=== PATIENT | male | born 1965 | race Caucasian/White ===

== ENCOUNTER 2016-11-20 11:15 | Emergency (ER) | payer OTHER ==
[~2016-11-20] VITALS: Ht 157.5 cm; Wt 97.4 kg
[~2016-11-20 11:15] MED LIST: ASPEC81 PO; CHOL100010 PO; INSDGI SC; LISI-729 PO; METF850T PO; METO25TA3 PO; NTRGSL/4 UT; OXYC-57 PO
[2016-11-20 11:17] VITALS: TEMP 37; Ht 157.5 cm; Wt 97.4 kg
[2016-11-20] MEDS ORDERED: CHOL1TAB42 PO (11:47)
[2016-11-20] MEDS ORDERED: ROSU40TA PO (11:47)
[2016-11-20] MEDS ORDERED: MELO15TA4 PO (11:47)
[2016-11-20] MEDS ORDERED: INSDGIPEN SC (11:47)
[2016-11-20] MEDS ORDERED: ASPI81TA28 PO (11:47)
[2016-11-20] MEDS ORDERED: LISI-461 PO (11:47)
[2016-11-20] MEDS ORDERED: DiphenhydrAMINE HCL 50 MG/ML VIAL IV STA (12:12)
[2016-11-20] MEDS ORDERED: KETOROLAC TROMETHAMINE 30 MG/ML VIAL IV STA (12:12)
[2016-11-20] MEDS ORDERED: PROCHLORPERAZINE 5 MG/ML 2 ML VIAL IV STA (12:12)
[2016-11-20] MEDS ORDERED: SODIUM CHLORIDE 0.9% 1000ML 1,000 ML IV STA ×2 (12:12→14:22)
[2016-11-20] MEDS ORDERED: DEXAMETHASONE SOD INJ 10 MG/ML VIAL IV ONE (12:15)
--- NOTE | 2016-11-20 12:17 | EMERGENCY ROOM VISIT NOTE ---
History Report prepared by Mickey: Matheus Holm Under the Supervision of: Dr. Drake Albert M.D. First contact with patient: 12:02 Chief Complaint: REFERRED BY DOCTOR Stated Complaint: SENT BY 'S OFFICE POSSIBLE BRAIN BLEED History of Present Illness The patient is a 51 year old male who presents to the Emergency Room with complaints of a constant left-sided headache for the past six days. The patient finds some relief with Tylenol. The patient also notes seeing spots, and feeling nauseous and lightheaded. The patient experiences chronic headaches, but notes that the current headache is unusual. His PCP referred him to the ED to role out a brain bleed. The patient denies neck pain. The patient is not a smoker. Source of History: patient Onset: six days Position: head (left) Timing: constant Modifying Factors (Relieving): tylenol Associated Symptoms: + nausea, No neck pain Review of Systems See HPI for pertinent positives & negatives. A total of 10 systems reviewed and were otherwise negative. Past Medical & Surgical Medical Problems: (1) Coron Atheroscler Nos Type Vessel, Lime Or Graft (2) Diab Allie Wo Compl, Type Ii Or Unspec Type, Not Uncntrld (3) History Of Tobacco Use (4) Hyperlipidemia Nec/Nos (5) Hypertension Nos (6) Migraine Unspecified W/O Intractable Migraine Family History Diabetes mellitus Heart disease Hypertension Social History Smoking Status: Never Smoker Alcohol Use: occasionally Marital Status: Housing Status: lives with family Occupation Status: employed Current/Historical Medications Scheduled Amoxicillin & Pot Clavulanate (Augmentin 875-125 mg), 1 TAB PO BID Aspirin (Aspirin Ec), 81 MG PO DAILY Cholecalciferol (Vitamin D), 5,000 UNITS PO DAILY Insulin Glargine (Lantus Solostar), 26 UNITS SC QPM Lisinopril (Zestril), 10 MG PO DAILY Meloxicam (Mobic), 15 MG PO DAILY Metformin Hcl (Glucophage), 850 MG PO BIDM Metoprolol Succ (Toprol Xl) (Toprol-Xl), 0.5 TAB PO BID Nitroglycerin (Nitrostat), 0.4 MG UT PRN Rosuvastatin Calcium (Crestor), 1 TAB PO DAILY Allergies Coded Allergies: No Known Allergies (Verified , 07/03/15) Physical Exam Vital Signs Date Time Temp Pulse Resp B/P Pulse Ox O2 Delivery O2 Flow Rate FiO2 11/20/16 15:54 74 22 158/99 94 Room Air 11/20/16 14:06 63 12 169/97 98 Room Air 11/20/16 12:41 69 11/20/16 12:35 67 17 142/94 97 Room Air 11/20/16 11:17 37.0 66 17 160/107 96 Room Air Physical Exam GENERAL: Patient is a healthy-appearing well-nourished HEAD: Normocephalic atraumatic EYES: Ocular movements intact pupils equal and react to light OROPHARYNX mucous membranes are moist no exudates present no erythema or edema present NECK: Supple no nuchal rigidity. No evidence of meningitis or encephalitis on exam. CHEST: Good equal expansion LUNGS: Clear and equal to auscultation CARDIAC: Normal S1 and S2 ABDOMEN: Soft nontender no guarding BACK: No CVA tenderness EXTREMITIES: No pain upon palpation normal muscle strength in all groups no clubbing cyanosis or edema NEURO: Patient is following commands is answering questions appropriately. Alert and oriented x3 Cranial Nerves 2-12 grossly intact Medical Decision & Procedures ER Provider Diagnostic Interpretation: CT results as stated below per my review and radiologist interpretation: HEAD CT NONCONTRAST CT DOSE: 537.48 mGy.cm HISTORY: Pt c/o left sided headache TECHNIQUE: Multiaxial CT images of the head were performed without the use of intravenous contrast. Automated exposure control was utilized for this study. Comparison: Head CT 07/13/2007. Findings: The paranasal sinuses and mastoid air cells are clear. The calvarium and skull base are intact. The ventricles and sulci are within normal limits. There is no mass, hematoma, midline shift, or acute infarct. Impression: No acute intracranial abnormality. Electronically signed by: Vincenzo Masterson M.D. 11/20/2016 2:14 PM Dictated Date/Time: 11/20/2016 2:04 PM CTA ANGIOGRAPHY OF THE HEAD CLINICAL HISTORY: Severe headache. COMPARISON STUDY: MRI the brain January 26, [address] performed earlier today. TECHNIQUE: Helical axial images of the head were obtained following uneventful intravenous administration of 93 cc of Optiray 320. CT DOSE: 209.35 mGy.cm FINDINGS: No acute intracranial hemorrhage, midline shift or mass effect is present. Ventricular system is normal. The basilar cisterns are patent. There are no extra-axial collections. Patino-white differentiation is maintained. The bilateral M1, M2, A1 and A2 segments are patent. The right A1 segment is diminutive. There is mild intracranial vascular irregularity. No aneurysm is identified within the intracranial circulation. The posterior circulation is intact. The major dural sinuses appear patent. There are are small amount of secretions within the left sphenoid sinus. There is mild polypoid mucosal thickening of the maxillary sinuses. Orbits are unremarkable. IMPRESSION: 1. No intracranial aneurysm identified. 2. No abrupt vessel cut off. 3. Mild sinus mucosal thickening and scattered secretions. Electronically signed by: Arnie Lorenz M.D. 11/20/2016 3:39 PM Dictated Date/Time: 11/20/2016 3:30 PM Laboratory Results 11/20/16 12:25 Red Blood Count 5.53, Mean Corpuscular Volume 80.8, Mean Corpuscular Hemoglobin 27.8, Mean Corpuscular Hemoglobin Concent 34.5, Mean Platelet Volume 9.7, Neutrophils (%) (Auto) 54.4, Lymphocytes (%) (Auto) 33.1, Monocytes (%) (Auto) 9.1, Eosinophils (%) (Auto) 2.8, Basophils (%) (Auto) 0.3, Neutrophils # (Auto) 4.25, Lymphocytes # (Auto) 2.58, Monocytes # (Auto) 0.71, Eosinophils # (Auto) 0.22, Basophils # (Auto) 0.02 11/20/16 12:25 Test 11/20/16 12:25 11/20/16 12:30 White Blood Count 7.80 K/uL (4.8-10.8) Red Blood Count 5.53 M/uL (4.7-6.1) Hemoglobin 15.4 g/dL (14.0-18.0) Hematocrit 44.7 % (42-52) Mean Corpuscular Volume 80.8 fL (80-100) Mean Corpuscular Hemoglobin 27.8 pg (25-34) Mean Corpuscular Hemoglobin Concent 34.5 g/dl (32-36) Platelet Count 260 K/uL (130-400) Mean Platelet Volume 9.7 fL (7.4-10.4) Neutrophils (%) (Auto) 54.4 % Lymphocytes (%) (Auto) 33.1 % Monocytes (%) (Auto) 9.1 % Eosinophils (%) (Auto) 2.8 % Basophils (%) (Auto) 0.3 % Neutrophils # (Auto) 4.25 K/uL (1.4-6.5) Lymphocytes # (Auto) 2.58 K/uL (1.2-3.4) Monocytes # (Auto) 0.71 K/uL (0.11-0.59) Eosinophils # (Auto) 0.22 K/uL (0-0.5) Basophils # (Auto) 0.02 K/uL (0-0.2) RDW Standard Deviation 41.8 fL (36.4-46.3) RDW Coefficient of Variation 14.1 % (11.5-14.5) Immature Granulocyte % (Auto) 0.3 % Immature Granulocyte # (Auto) 0.02 K/uL (0.00-0.02) Anion Gap 9.0 mmol/L (3-11) Est Creatinine Clear Calc Drug Dose 106.8 ml/min Estimated GFR () 118.1 Estimated GFR (Non- 101.9 BUN/Creatinine Ratio 15.9 (10-20) Calcium Level 9.8 mg/dl (8.5-10.1) Total Bilirubin 0.7 mg/dl (0.2-1) Direct Bilirubin 0.2 mg/dl (0-0.2) Aspartate Amino Transf (AST/SGOT) 31 U/L (15-37) Alanine Aminotransferase (ALT/SGPT) 62 U/L (12-78) Alkaline Phosphatase 64 U/L (45-117) Total Protein 8.2 gm/dl (6.4-8.2) Albumin 4.4 gm/dl (3.4-5.0) Lipase 188 U/L (73-393) Urine Color YELLOW Urine Appearance CLEAR (CLEAR) Urine pH 5.5 (4.5-7.5) Urine Specific [place] 1.011 (1.000-1.030) Urine Protein TRACE (NEG) Urine Glucose (UA) NEG (NEG) Urine Ketones NEG (NEG) Urine Occult Blood 3+ (NEG) Urine Nitrite NEG (NEG) Urine Bilirubin NEG (NEG) Urine Urobilinogen NEG (NEG) Urine Leukocyte Esterase NEG (NEG) Urine WBC (Auto) 0 /hpf (0-5) Urine RBC (Auto) 10-30 /hpf (0-4) Urine Hyaline Casts (Auto) 0 /lpf (0-5) Urine Epithelial Cells (Auto) 5-10 /lpf (0-5) Urine Bacteria (Auto) NEG (NEG) Labs reviewed by ED physician. Medications Administered Medications (Trade) Dose Ordered Sig/Vikki Route Start Time Stop Time Status Last Admin Dose Admin Sodium Chloride (Nss 1000ml) 1,000 ml @ 999 mls/hr Q1H1M STAT IV 11/20/16 12:12 11/20/16 13:12 DC 11/20/16 12:51 999 MLS/HR Ketorolac Tromethamine (Toradol Inj) 30 mg NOW STAT IV 11/20/16 12:12 11/20/16 12:16 DC 11/20/16 14:13 30 MG Prochlorperazine Edisylate (Compazine Inj) 10 mg NOW STAT IV 11/20/16 12:12 11/20/16 12:16 DC 11/20/16 12:52 10 MG Diphenhydramine HCl (Benadryl Inj) 50 mg NOW STAT IV 11/20/16 12:12 11/20/16 12:16 DC 11/20/16 12:57 50 MG Dexamethasone Sodium Phosphate (Decadron Inj) 10 mg NOW ONCE IV 11/20/16 12:15 11/20/16 12:16 DC 11/20/16 12:51 10 MG Hydromorphone HCl 1 mg 1 mg NOW STAT IV 11/20/16 14:22 11/20/16 14:23 DC 11/20/16 14:40 1 MG Promethazine HCl 25 mg/Sodium Chloride 51 ml @ 204 mls/hr NOW STAT IV 11/20/16 14:22 11/20/16 14:36 DC 11/20/16 14:40 204 MLS/HR Sodium Chloride (Nss 1000ml) 1,000 ml @ 999 mls/hr Q1H1M STAT IV 11/20/16 14:22 11/20/16 15:22 DC 11/20/16 14:40 999 MLS/HR Sodium Chloride ([place] Nasal [place]) 2 sprays NOW ONCE NA 11/20/16 15:45 11/20/16 15:46 DC 11/20/16 16:02 2 SPRAYS Amoxicillin/ Clavulanate Potassium (Augmentin Tab) 875 mg NOW STAT PO 11/20/16 15:44 11/20/16 15:46 DC 11/20/16 16:02 875 MG ED Course 1208: Past medical records reviewed. The patient was evaluated in room C3. A complete history and physical examination was performed. 1212: Benadryl 50 mg IV, Compazine 10 mg IV, Toradol 30 mg IV, NSS 1000 ml @ 999 mls/hr. 1215: Decadron 10 mg IV. 1422: NSS 1000 ml @ 999 mls/hr, Promethazine HCl 25 mg / NSS 51 ml @ 204 mls/hr , Dilaudid 1 mg IV. Medical Decision Differential diagnosis: Etiologies such as migraine headache, meningitis, sinusitis, CO exposure, ICH, SAH, infection, tumor, headache, sinus thrombosis, arterial dissection, as well as others were entertained. This is a 51-year-old male who presents emergency department with severe headache and is been ongoing for the past 6 days. The patient has no evidence of meningitis encephalitis on examination. CT of the head is normal however the patient continued to have head pain. Based on the fact that the patient stated that the pain came on suddenly we attempted to do a lumbar puncture however were unsuccessful. Based on this the patient was sent back for CAT scan and she however this did not show any acute process. An IV was established , patient given normal saline bolus, Compazine, Benadryl. Repeat examination revealed much improvement patient's symptoms. The patient does have sinus disease on the CAT scan and I will treat him for sinus infection at this point with follow-up with neurology. Patient was in agreement with the treatment plan. Impression Primary Impression: Headache Scribe Attestation The scribe's documentation has been prepared under my direction and personally reviewed by me in its entirety. I confirm that the note above accurately reflects all work, treatment, procedures, and medical decision making performed by me. Departure Information Dispostion Home / Self-Care Prescriptions Amoxicillin & Pot Clavulanate (Augmentin 875-125 mg) 1 Tab Tab 1 TAB PO BID for 10 Days, #20 TAB Prov: Drake Albert MD 11/20/16 Referrals Mark Jauregui M.D. (PCP) Patient Instructions My [facility] Problem Qualifiers Primary Impression: Headache Headache type: tension-type Headache chronicity pattern: unspecified pattern Intractability: not intractable Qualified Codes: G44.209 - Tension- type headache, unspecified, not intractable
[2016-11-20 12:42] LABS: BASO % 0.3 %; BASO ABS # 0.02 K/uL (0-0.2); COMPLETE YES; EOS % 2.8 %; HEMATOCRIT 44.7 % (42-52); IG% 0.3 %; LYMPH % 33.1 %; LYMPH ABS # 2.58 K/uL (1.2-3.4); MEAN CELL VOLUME 80.8 fL (80-100); MEAN CORPUSCULAR HEMOGLOBIN 27.8 pg (25-34); MEAN CORPUSCULAR HGB CONC 34.5 g/dl (32-36); MEAN PLATELET VOLUME 9.7 fL (7.4-10.4); MONO % 9.1 %; NEUT % 54.4 %; PLATELET COUNT 260 K/uL (130-400); RED BLOOD COUNT 5.53 M/uL (4.7-6.1)
[2016-11-20 13:04] LABS: BUN/CREATININE RATIO 15.9 (10-20); CALCIUM 9.8 mg/dl (8.5-10.1); CREATININE 0.83 mg/dl (0.60-1.40)
[2016-11-20 13:05] LABS: URINE APPEARANCE CLEAR (CLEAR); URINE BILIRUBIN NEG (NEG); URINE COLOR YELLOW; URINE NITRITE NEG (NEG); URINE PH 5.5 (4.5-7.5); URINE SPECIFIC GRAVITY 1.011 (1.000-1.030); UROBILINOGEN NEG (NEG)
[2016-11-20 13:10] LABS: MANUAL MICROSCOPIC REQUIRED? NO; REVIEW REQ? NO
--- NOTE | 2016-11-20 14:16 | DIAGNOSTIC IMAGING REPORT ---
HEAD CT NONCONTRAST CT DOSE: 537.48 mGy.cm HISTORY: Pt c/o left sided headache TECHNIQUE: Multiaxial CT images of the head were performed without the use of intravenous contrast. Automated exposure control was utilized for this study. Comparison: Head CT 07/13/2007. Findings: The paranasal sinuses and mastoid air cells are clear. The calvarium and skull base are intact. The ventricles and sulci are within normal limits. There is no mass, hematoma, midline shift, or acute infarct. Impression: No acute intracranial abnormality. Electronically signed by: Vincenzo Masterson M.D. 11/20/2016 2:14 PM Dictated Date/Time: 11/20/2016 2:04 PM
[2016-11-20] MEDS ORDERED: HYDROmorphone INJ 1 MG/ML SYR IV STA (14:22)
[2016-11-20] MEDS ORDERED: PROMETHAZINE HCL INJ 25 MG in SODIUM CHLORIDE 0.9% 50ML 50 ML IV STA (14:22)
[2016-11-20] MEDS ORDERED: LIDOCAINE HCL 1% 20 ML VIAL ONE (14:56)
[2016-11-20] MEDS ORDERED: OPTIRAY 320 IV PRN (15:15)
--- NOTE | 2016-11-20 15:40 | DIAGNOSTIC IMAGING REPORT ---
CTA ANGIOGRAPHY OF THE HEAD CLINICAL HISTORY: Severe headache. COMPARISON STUDY: MRI the brain January 26, [address] performed earlier today. TECHNIQUE: Helical axial images of the head were obtained following uneventful intravenous administration of 93 cc of Optiray 320. CT DOSE: 209.35 mGy.cm FINDINGS: No acute intracranial hemorrhage, midline shift or mass effect is present. Ventricular system is normal. The basilar cisterns are patent. There are no extra-axial collections. Patino-white differentiation is maintained. The bilateral M1, M2, A1 and A2 segments are patent. The right A1 segment is diminutive. There is mild intracranial vascular irregularity. No aneurysm is identified within the intracranial circulation. The posterior circulation is intact. The major dural sinuses appear patent. There are are small amount of secretions within the left sphenoid sinus. There is mild polypoid mucosal thickening of the maxillary sinuses. Orbits are unremarkable. IMPRESSION: 1. No intracranial aneurysm identified. 2. No abrupt vessel cut off. 3. Mild sinus mucosal thickening and scattered secretions. Electronically signed by: Arnie Lorenz M.D. 11/20/2016 3:39 PM Dictated Date/Time: 11/20/2016 3:30 PM
[2016-11-20] MEDS ORDERED: AMOXICILLIN/CLAVULANATE TAB 875 MG TAB PO STA (15:44)
[2016-11-20] MEDS ORDERED: SODIUM CHLORIDE 0.65% NA SOLN 45 ML (OCEAN) ONE (15:45)
[2016-11-20] MEDS ORDERED: AMOX875T PO (15:52)
[2016-11-20 15:54] VITALS: BP 158/99; PULSE 74; O2SAT 94
== END 2016-11-20 16:12 | disposition home or self-care (01) ==
LOC: C.EDB 11:17 → C.EDC 16:12
DX: G44.209 Tension-type headache, unspecified, not intractable (principal); J32.9 Chronic sinusitis, unspecified; I25.10 Atherosclerotic heart disease of native coronary artery without angina pectoris; E11.9 Type 2 diabetes mellitus without complications; I11.9 Hypertensive heart disease without heart failure; G43.909 Migraine, unspecified, not intractable, without status migrainosus; E78.5 Hyperlipidemia, unspecified; Z79.899 Other long term (current) drug therapy; Z79.82 Long term (current) use of aspirin; Z79.4 Long term (current) use of insulin; Z83.3 Family history of diabetes mellitus; Z82.49 Family history of ischemic heart disease and other diseases of the circulatory system

== ENCOUNTER → 2016-12-22 | Outpatient (CLI) | payer OTHER ==
[~2016-12-22] MED LIST changes: -ASPEC81 PO; +ASPI81TA28 PO; -CHOL100010 PO; +CHOL1TAB42 PO; -INSDGI SC; +INSDGIPEN SC; +LISI-461 PO; -LISI-729 PO; +MELO15TA4 PO; -OXYC-57 PO; +ROSU40TA PO
--- NOTE | 2016-12-22 11:14 | DIAGNOSTIC IMAGING REPORT ---
CERVICAL SPINE 2 OR 3 VIEWS CLINICAL HISTORY: G43.909 Headache, [id number] COMPARISON STUDY: 01/21/2012 FINDINGS: There is straightening of normal cervical lordosis. No fractures or subluxations are visualized. There are mild degenerative changes most pronounced the C4-5 and C5-6 levels. IMPRESSION: Mild degenerative changes. No fractures subluxations or destructive lesions are visualized. Electronically signed by: Jean Hill M.D. 12/22/2016 11:12 AM Dictated Date/Time: 12/22/2016 11:12 AM
== END | disposition home or self-care (01) ==
LOC: C.RAD 10:26
PROVIDERS: ATTEND Internal Medicine
DX: G43.909 Migraine, unspecified, not intractable, without status migrainosus (principal)

== ENCOUNTER → 2017-05-05 | Outpatient (CLI) | payer OTHER ==
--- NOTE | 2017-05-06 07:42 | PAP/PSG TECHNICIAN REPORT ---
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 Name: INDERJIT BALDERAS Interpreting Physician: Anil Avilez D.O. 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 Sex: Male Age: 51 StudyType: PSG Weight: 220 lbs Height: 51 years, Height 5' 2" BMI: 40.23 Medications: Atrovastatin Calcium 80 mg, Insulin 100 Units, Lisinopril 10 mg, Metoprolol 50 mg. Patient History 51 yr. old male in room 5, presents from the [place] for a routine sleep study. Pt. States that he wakes with headaches often, and has been told that he has breathing pauses while sleeping. He states that he has had sleep studies in the past that were negative. He also states that he has been told that he snores. Parameters Monitored NPSG: E1-M2, E2-M1, Fp1-M2, Fp2-M1, F3-M2, F4-M2, F4-M1, C3-M2, C4-M2, C4-M1, O1-M2, O2-M2, O2-M1, T3-M2, T4-M1, P3-M2, P4-M1, CHIN1, CHIN2, HR, EKG, Legs, PFLOW, SNOR, FLOW, CFLOW, Tidal Volume, THOR, ABDO, SpO2, PLTH, CPRESS, ETCO2 Wave, ETCO2, pH Sleep Architecture Sleep Stages Time at Lights Off 10:10:36 PM STAGES Time (min.) TST (%) Time at Lights On 5:33:36 AM Wake 31.0 -- Total Recording Time (TRT) 444.00 min. N1 32.0 8 Total Sleep Period (TSP) 421.0 min. N2 289.0 70 Total Sleep Time (TST) 412.0min. N3 0.0 0 Awake Time 31.0 min. REM 91.0 22 Wake after Sleep Onset 9.0 min. Sleep Efficiency (SE) 93 % Sleep Onset Latency (AYAN) 22.0 min. Number of Stage 1 Shifts None Awakenings 5 Stage Changes 39 Number of REM periods 4 REM 91.0 22 REM Latency 100.5 min. NREM 321.0 78 Body Position Analysis Supine Right Left Side Prone Vertical Total Sleep Time (min.) 309.6 41.9 78.6 120.48 0.0 0.4 Total Sleep Time (%) 71% 10% 19% 29 0% N/A% Total Sleep Time REM (min.) 64.4 0.0 26.6 None 0.0 0.0 Total Sleep Time NREM (min.) 227.1 41.9 52.0 None 0.0 0.0 Intermittent Wake (min.) 18.1 8.2 4.4 None 0.0 0.4 Total Sleep Period (%) 70% None None None None None Arousals Myoclonus (PLM) * Events Count Index Events Count Index Spontaneous 30 4 Events Awake (PLMW) 0 0.0 Respiratory 6 0.9 Events Asleep w/ Arousal (PLMA) 5 0.7 PLM 5 1 Events Asleep w/o Arousal (PLMS) 76 11.1 Snoring 30 4 Total Asleep 81 11.8 Total 71 10 Total 81 11 Respiratory Analysis * CA OA MA CH H RERA Total Count 1 3 0 0 107 0 111 Index 0.1 0.4 0.0 0 15.6 0 16.2 Mean Duration 14.9 12.6 0.0 0.00 17.3 0.0 17.2 Longest Duration 14.9 14.3 0.0 0.00 0.0 0.0 57.6 Respiratory Event Summary Total Supine ~Supine Right Left Prone REM NREM Apneas Count 4 4 0 0 0 N/A 1 3 Index 0.6 1 0 0.0 0.0 N/A 1 1 Hypopneas (4% Desat) Count 107 95 12 2 10 N/A 48 59 Index 15.6 19.6 6 2.9 7.6 N/A 31.6 11.0 Apneas & All Hypopneas Count 111 99 12 2 10 N/A 49 62 Index 16.2 20 6 3 8 N/A 32.3 11.6 Respiratory Events (Commissary Helper+All Hyp+RERA) Count 111 99 12 2 10 N/A 49 62 Index 16.2 20 6 2.9 7.6 N/A 32.3 11.6 Respiratory Related Arousal Count 6 99 1 0 1 N/A 1 5 Index 0.9 1 0 0 1 N/A 1 1 Snoring Analysis Supine Right Left Prone REM NREM Total Snore duration 71.8 min Snores count 2,671 218 448 N/A 592 2,745 3,337 Snore mean duration 1.3 Sec Snores index 550 313 342 N/A 390.3 513.1 486.0 TST with snoring (%) 17.4% Desaturation Event Summary: Minimum %SpO2 Event Count Mean/Min/Max Duration(sec.) Desaturation Index % Time In Bed > 90 126 21.5 / 6.8 / 58.0 17.6 97.2 86 - 90 6 19.1 / 7.3 / 24.3 32.2 2.5 81 - 85 1 7.3 / 7.3 / 7.3 47.4 0.3 76 - 80 0 N/A 0.0 0.0 71 - 75 0 N/A 0.0 0.0 66 - 70 0 N/A 0.0 0.0 61 - 65 0 N/A 0.0 0.0 56 - 60 0 N/A 0.0 0.0 51 - 55 0 N/A 0.0 0.0 < 50 0 N/A 0.0 0.0 Total REM NREM Awake <50% 0.0 min. 0.0 min. 0.0 min. 0.0 min. 51 - 60% 0.0 min. 0.0 min. 0.0 min. 0.0 min. 61 - 70% 0.0 min. 0.0 min. 0.0 min. 0.0 min. 71 - 80% 0.1 min. 0.1 min. 0.0 min. 0.0 min. 81 - 90% 12.4 min. 9.2 min. 2.4 min. 0.8 min. 91 - 100% 430.2 min. 81.6 min. 318.4 min. 30.2 min. Average 93 94 93 94 Minimum SpO2 77 77 89 87 Desaturation Event Index 17.5 30.3 15.5 0.0 # Desat. Events below 89% 13 13 N/A N/A Time(%) with Saturation below 89% 1.2 1.1 0.0 0.0 Time(min.) with Saturation below 89% 5.1 4.9 0.0 0.2 Time (mins) REM (mins) NREM (mins) % of TST SpO2 Below 90% 37 21 N16 1.8 SpO2 Below 88% 6 0 0 1 Heart Rate Analysis Min (bpm) Max (bpm) Average (bpm) Awake 66 94 75 NREM 60 127 71 REM 49 94 69 Overall 49 127 71 Supplemental O2 Values Minimum O2 level: None Value Start Time End Time [employer] Swe[employer] Operator Comments PSG Study Mr. Balderas slept in the right, left, and supine positions. No cardiac arrhythmia or PLM's noted. No bruxism noted. Snoring was noted and scored as a 2 on a scale of 1 through 5. (0=no snoring, 5=snoring loud enough to be heard through a closed door or down the [address] way) Mr. Balderas awoke to use the restroom zero times during the night. Mr. Balderas stated, I did sleep better than do when I am in my own bed. The final report will be interpreted and signed by a sleep physician. The completed physician report will then be placed in the patient medical record. Therapy (cm H2O) 0 TIB (min.) 443.0 TST (min.) 412.0 Sleep Onset (min.) 22.0 REM Onset From Sleep (min.) 100.5 Sleep Efficiency % 93 Wakefulness (%) 7 Wakefulness (min.) 31.0 NREM 1 (%) 8 NREM 1 (min.) 32.0 NREM 2 (%) 70 NREM 2 (min.) 289.0 NREM 3 (%) 0 NREM 3 (min.) 0.0 REM (%) 22 REM (min.) 91.0 # Arousals 71 Arousal Index 10 # Snore 3,337 Snore Index 486.0 AHI 16.2 AHI Supine 20 AHI Non-Supine 6 NREM AHI 11.6 REM AHI 32.3 RDI 16.2 # Obstructive Apnea 3 # Central Apnea 1 # Mixed Apnea 0 # Hypopneas 107 RERAs 0 Total Respiratory Events 112 Time Below SpO2 89% (min.) 4.9 Mean NREM SpO2 (%) 93 Mean REM SpO2 (%) 94 Mean Sleep SpO2 (%) 93 Min NREM SpO2 (%) 89 Min REM SpO2 (%) 77 Position Supine (min.) 309.6 Position Non-supine (min.) 120.5 LM Index Sleep 11.8 LM Index NREM 9.2 LM Index REM 21.1 Mean Heart Rate (bpm) 71 Min Heart Rate (bpm) 49
--- NOTE | 2017-05-08 14:59 | Sleep Study ---
Sleep Study Report Date of Service: 05/05/2017 Sleep Study Report Clinical data: The patient has a BMI of 40.23. He is referred by Dr.Maged Gagnon for a sleep evaluation. He has a history of snoring, observed apneas, and morning headaches. He reportedly had a prior sleep study that was negative. Sleep architecture: The total sleep period was 421.0 minutes. The total sleep time was 412.0 minutes. Sleep efficiency was normal at 93%. The sleep latency was 22 minutes. Wake after sleep onset was 9 minutes. REM latency was 100.5 minutes. Sleep consisted of stage NI 8%, stage N2 70%, stage N3 0%, stage REM 22%. Arousal data: The patient had a total of 71 arousals including 30 spontaneous arousals, 6 respiratory arousals, 5 PLM arousals, and 30 snoring arousals. The arousal index was 10. PLM data: The patient had a total of 81 periodic limb movements of sleep for a PLM index of 11.8. There were 5 arousals associated with leg movements for a PLM arousal index of 0.7. EKG: The underlying cardiac rhythm was normal sinus. The cardiac rates ranged from 49 to 94 beats per minute. The average heart rate was 71 beats per minute. No cardiac arrhythmia was noted. Respiratory data: The patient had a total of 111 respiratory events including 1 central apnea, 3 obstructive apneas, and 107 hypopneas. Hypopneas were scored according to the 4 % desaturation rule. The apnea-hypopnea index was moderately elevated at 16.2 events per hour. The longest apnea was 14.9 seconds. The mean duration of the hypopneas was 17.3 seconds. Oximetry data: The average saturation was 93%. The minimum saturation was 77%. There was a total of 5.1 minutes with saturations less than 89%. Allergy Nurse comments: The patient slept in the right, left, and supine positions. No cardiac arrhythmia noted. No bruxism noted. Snoring was noted and scored as a 2 on a scale of 1 through 5. The patient stated that he slept better than he usually does when he is in his own bed. Impressions: 1. Obstructive sleep apnea-moderate Comments: Patient had a normal sleep efficiency. Sleep architecture showed an increase in stage N2 sleep and no stage N3 sleep. The majority of the night was spent supine. There was a mild number of limb movements. He had moderate sleep apnea as assessed by the apnea-hypopnea index of 16.2. Patient apparently has a history of hypertension and diabetes mellitus as comorbidities. Treatment is advised. Recommendations: 1. It is suggested that the patient be treated with nasal CPAP. This could be done by referring the patient back for a CPAP titration in the sleep lab. Alternatively he could be treated with auto CPAP. 2. The patient has an elevation of body mass index of 40.23. A weight reduction program is advised. 3. It is suggested that the patient avoid sleeping in the supine position. During this study the apnea-hypopnea index supine was 20 and the apnea-hypopnea index nonsupine was only 6. 4. The patient should be advised of the appropriate principles of sleep hygiene with particular emphasis on having a regular sleep-wake schedule and allowing 7.5-8 hours of sleep per night. 5. Patient should be seen in follow-up between day 31 day 90 after receiving his CPAP. Copies To 1: Anil Avilez DO; Tay Gagnon M.D.
== END | disposition home or self-care (01) ==
LOC: C.NEUR 20:00
PROVIDERS: ATTEND Internal Medicine
DX: G47.33 Obstructive sleep apnea (adult) (pediatric) (principal)

== ENCOUNTER → 2017-05-14 | Outpatient (CLI) | payer OTHER ==
[~2017-05-14] VITALS: Ht 154.9 cm; Wt 93.9 kg
[2017-05-14 10:35] VITALS: BP 133/88; PULSE 74; BMI 39.1
[2017-05-14 12:01] VITALS: BP 133/88; PULSE 74; Ht 154.9 cm; Wt 93.9 kg
== END | disposition home or self-care (01) ==
LOC: C.NEUR 09:56
PROVIDERS: ATTEND Internal Medicine Pulmonary Disease
DX: G47.33 Obstructive sleep apnea (adult) (pediatric) (principal)

== ENCOUNTER → 2017-08-06 | Outpatient (CLI) | payer OTHER ==
[~2017-08-06] VITALS: Ht 157.5 cm; Wt 95.4 kg
[2017-08-06 10:57] VITALS: BP 149/96; PULSE 92; Ht 157.5 cm; Wt 95.4 kg
== END | disposition home or self-care (01) ==
LOC: C.NEUR 10:17
PROVIDERS: ATTEND Internal Medicine Pulmonary Disease
DX: G47.33 Obstructive sleep apnea (adult) (pediatric) (principal)

== ENCOUNTER → 2018-02-04 | Outpatient (CLI) | payer OTHER ==
[~2018-02-04] VITALS: Ht 157.5 cm; Wt 97.3 kg
[~2018-02-04] MED LIST changes: +MELO-84 PO; -MELO15TA4 PO
[2018-02-04 13:46] VITALS: BP 136/91; PULSE 85; Ht 157.5 cm; Wt 97.3 kg
== END | disposition home or self-care (01) ==
LOC: C.NEUR 13:24
PROVIDERS: ATTEND Physician Assistant
DX: G47.33 Obstructive sleep apnea (adult) (pediatric) (principal)

== ENCOUNTER → 2018-02-17 | Outpatient (CLI) | payer OTHER | END | disposition home or self-care (01) | LOC: C.LABBC 11:07 | PROVIDERS: ATTEND Orthopaedic Surgery | DX: M25.562 Pain in left knee (principal); M25.462 Effusion, left knee ==

== ENCOUNTER 2022-05-14 09:57 | Inpatient (IN) ==
--- NOTE | 2022-04-14 12:31 | PAT Medication Instructions ---
Medication Instructions Date of Service April 14, 2022 Home Medications Medication Instructions Recorded cyanocobalamin (vitamin B-12) 1,000 mcg IM ONCE 4 weeks #4 mL 01/30/22 1,000 mcg/mL injection solution syringe with needle 3 mL 23 x 1" #4 ea 02/03/22 (BD Eclipse Luer-Agustín) galcanezumab-gnlm 120 mg/mL See Rx Instructions .Route 03/17/22 subcutaneous pen injector .COMPLEX 30 days #1 mL (Emgality Pen) lisinopril 5 mg tablet 5 mg PO QAM metoprolol tartrate 50 mg tablet 25 mg PO BID aspirin 81 mg tablet,delayed release 81 mg PO QAM atorvastatin 80 mg tablet 80 mg PO HS metformin 1,000 mg tablet 1,000 mg PO BID empagliflozin 25 mg tablet 25 mg PO QAM cyanocobalamin (vitamin B-12) 1,000 mcg/mL injection solution 1,000 mcg IM ONCE 4 weeks galcanezumab-gnlm 120 mg/mL subcutaneous pen injector (Emgality Pen) See Rx Instructions .Route .COMPLEX cholecalciferol (vitamin D3) 100 mcg (4,000 unit) capsule 100 mcg PO QAM ferrous sulfate 325 mg (65 mg iron) tablet 325 mg PO QAM insulin glargine 100 unit/mL (3 mL) subcutaneous pen (Lantus Solostar U-100 Insulin) 42 unit subcut HS ASK your prescriber and surgeon galcanezumab-gnlm 120 mg/mL subcutaneous pen injector (Emgality Pen) See Rx Instructions .Route .COMPLEX aspirin 81 mg tablet,delayed release 81 mg PO QAM DO NOT take the morning of surgery lisinopril 5 mg tablet 5 mg PO QAM metformin 1,000 mg tablet 1,000 mg PO BID empagliflozin 25 mg tablet 25 mg PO QAM cyanocobalamin (vitamin B-12) 1,000 mcg/mL injection solution 1,000 mcg IM ONCE 4 weeks cholecalciferol (vitamin D3) 100 mcg (4,000 unit) capsule 100 mcg PO QAM ferrous sulfate 325 mg (65 mg iron) tablet 325 mg PO QAM Take morning of surgery With a small sip of water, OTHERWISE NOTHING TO EAT OR DRINK AFTER MIDNIGHT: metoprolol tartrate 50 mg tablet 25 mg PO BID Take evening before surgery metoprolol tartrate 50 mg tablet 25 mg PO BID atorvastatin 80 mg tablet 80 mg PO HS metformin 1,000 mg tablet 1,000 mg PO BID insulin glargine 100 unit/mL (3 mL) subcutaneous pen (Lantus Solostar U-100 Insulin) 42 unit subcut HS Other Notes If you have any questions please call us at [phone] or [phone] or [phone] or [phone]
--- NOTE | 2022-04-17 10:47 | Anesthesiology Consultation ---
Date of Service April 17, 2022 Assessment & Plan (1) Encounter for pre-operative examination: - PAT testing to be faxed to surgeon and PCP for continuity of care. - check BSG am DOS. - awaiting cardiology pre-op evaluation. - cardiac history: intermittent chest discomfort, hx MN and abnormal cardiac catheterization >15 yrs ago at ID in [place] ([place]) per pt "not stent due to difficult blockage location." No available records. Will have patient see cardiology for pre-op evaluation. - intubation considerations: loose front lower tooth and chipped left lower back tooth. - COVID screening: Per assessment on 04/17/2022: Travel screen-returned from [facility] 04/11 via airplane, no known COVID-19 positive contacts or current COVID-19 related symptoms in past 2 weeks. Pt vaccinated. Surgeon arranging preop COVID testing, scheduled 05/12/2022. Awaiting results. Chart Review Chart Review: Pending: Refer to Additional Notes / Consult section and Patient seen in Pre Admission Testing Teaching & Discussion Pre-Anesthesia Teaching/Discussion Notes: Instructed NPO after midnight before surgery, except medications with 15 cc of water. Medication instructions provided according to the PAT guidelines. History Surgery Operation Date: 05/14/22 12:20 Proposed Procedures p Right Total Shoulder Arthroplasty - Thor Cobb MD Height/Weight Height: 5 ft 2 in Weight: 91.9 kg Allergies Allergy/AdvReac Type Severity Reaction Status Date / Time nortriptyline Allergy Intermediate high blood Verified 04/14/22 11:50 pressure Medications Home Medications Medication Instructions Recorded Confirmed Last Taken lisinopril 5 mg tablet 5 mg PO QAM #90 tabs 06/08/19 04/14/22 08/31/19 metoprolol tartrate 50 mg tablet 25 mg PO BID 06/08/19 04/14/22 08/31/19 aspirin 81 mg tablet,delayed 81 mg PO QAM 09/01/19 04/14/22 08/31/19 release atorvastatin 80 mg tablet 80 mg PO HS 09/01/19 04/14/22 08/31/19 metformin 1,000 mg tablet 1,000 mg PO BID 09/01/19 04/14/22 08/31/19 empagliflozin 25 mg tablet 25 mg PO QAM 11/05/21 04/14/22 Unknown cyanocobalamin (vitamin B-12) 1,000 mcg IM ONCE 4 weeks #4 mL 01/30/22 04/14/22 Unknown 1,000 mcg/mL injection solution syringe with needle 3 mL 23 x 1" #4 ea 02/03/22 03/17/22 Unknown (BD Eclipse Luer-Agustín) galcanezumab-gnlm 120 mg/mL See Rx Instructions .Route 03/17/22 04/14/22 Unknown subcutaneous pen injector .COMPLEX 30 days #1 mL (Emgality Pen) cholecalciferol (vitamin D3) 100 100 mcg PO QAM 04/14/22 04/14/22 Unknown mcg (4,000 unit) capsule ferrous sulfate 325 mg (65 mg 325 mg PO QAM 04/14/22 04/14/22 Unknown iron) tablet insulin glargine 100 unit/mL (3 42 unit subcut HS 04/14/22 04/14/22 Unknown mL) subcutaneous pen (Lantus Solostar U-100 Insulin) Past Medical History Medical History (Updated 04/17/22 @ 11:17 by Angela Ramsay PA-C) Arteriosclerosis of coronary artery cath 15 yrs ago, pt states that stent was not placed d/t difficult location; intermittent chest discomfort per pt with negative work-up in ER and considered to be musculoskeletal-no records on catheterization or ER visits with chest discomfort History of COVID-19 08/2020>LOSS OF SMELL-denies hospitalization *RESOLVED History of heart attack remote, > 15 yrs ago, pt states no stents d/t "difficult blockage location" Hyperlipidemia Hypertension controlled, stable per pt Low iron Migraine without aura, not intractable, without status migrainosus Obstructive sleep apnea, adult CPAP-compliant Type 2 diabetes mellitus IDDM Patient denies h/o stroke, seizures, heart failure, blood clots or blood transfusions. Exercise / Class Metabolic Activity II 4-5 Yardwork/Stairs/Walk up hill (occasional chest discomfort, denies change or worsening; denies shortness of breath) Past Family History Family History Mother Family history of diabetes mellitus Father Family history of diabetes mellitus Brother Family history of diabetes mellitus Mother No problems noted. Sister Family history of diabetes mellitus Other No family history of adverse response to anesthesia Past Surgical History Surgical History (Updated 04/17/22 @ 11:04 by Angela Ramsay PA-C) H/O arthroscopy of knee RT X 2 History of cardiac cath >15 YEARS AGO-Pt states "unable to stent blockage due to location at juncture" History of shoulder surgery 2-RT1-/LEFT History of tonsillectomy History of tooth extraction Hx of appendectomy Past Anesthesia History No Hx of Anesthesia Complications and No Family Hx of Anesthesia Complications History of PONV No Hx of Motion Sickness and History of PONV (denies scop patch) Social History Smoking Status: Never smoker Do You Dip or Chew Tobacco: No Hx Alcohol Use: Yes Alcohol type: beer, wine and hard liquor alcohol intake frequency: a few times a week substance use type: does not use Review of Systems Patient denies shortness of breath, dyspnea on exertion, reflux, fever, chills, cough, wheezing, or palpitations. Physical Exam Vital Signs Vitals BP 114/76 P 63 TEMP 97.6 SP02 98% on RA RESP 17 Physical Full cervical extension range of motion without pain TMD 3.5 finger breaths Mallampati Score 2 Dentition: intact, lower loose front tooth, chipped left lower back, several missing teeth, plate upper throughout, several caps/crowns; denies implants Lungs: normal respiratory effort. Clear throughout to auscultation, no adventitious breath sounds Cardiac: regular rate and rhythm, no murmurs noted Carotid arteries: negative bruit bilat Lab Results Anesthesia Preop Results Results Anesthesia Widget: WBC 8.60 K/ul (4.8-10.8) 04/17/22 Hgb 13.9 g/dl (14.0-18.0) L 04/17/22 Hct 43.8 % (40.1-51.0) 04/17/22 Plt 230 K/uL (130-400) 04/17/22 Na 142 mmol/L (136-145) 04/17/22 K 4.1 mmol/L (3.5-5.1) 04/17/22 Cl 108 mmol/L (98-107) H 04/17/22 CO2 25 mmol/L (21-32) 04/17/22 BUN 15 mg/dl (6-23) 04/17/22 Creat 0.77 mg/dl (0.6-1.4) 04/17/22 Glucose Level 98 mg/dl (70-99(Fasting)) 04/17/22 PT 11.0 Seconds (9.0-12.0) 04/17/22 PTT 27.9 Seconds (21.0-31.0) 04/17/22 INR 1.0 (0.9-1.1) 04/17/22 HA1c 6.3 % (4.5-5.6) H 04/17/22 Urine Color Yellow 04/17/22 Urine Appearance Clear (Clear) 04/17/22 Urine pH 5.0 (4.5-7.5) 04/17/22 Urine Specific [place] > 1.045 (1.000-1.030) H 04/17/22 Urine Protein 1+ (Negative) H 04/17/22 Urine Glucose (UA) 3+ (Negative) H 04/17/22 Urine Ketones Trace (Negative) H 04/17/22 Urine Blood Negative (Negative) 04/17/22 Urine Nitrite Negative (Negative) 04/17/22 Urine Bilirubin Negative (Negative) 04/17/22 Urine Urobilinogen Negative (Negative) 04/17/22 Urine Leukocyte Esterase Negative (Negative) 04/17/22 Urine WBC (Auto) 1-5 /hpf (0-5) 04/17/22 Urine RBC (Auto) 0-4 /hpf (0-4) 04/17/22 Urine Hyaline Casts (Auto) 1-5 /lpf (0-5) 04/17/22 Urine Epithelial Cells (Auto) 5-10 /lpf (0-5) H 04/17/22 Urine Bacteria (Auto) Negative (Negative) 04/17/22 Blood Type A Positive 04/17/22 Antibody Screen NEGATIVE 04/17/22 Testing Electrocardiogram Date: 04/17/22 NSR, rate 63 bpm Inferior infarct cited on or before 10/30/08 Chest X-Ray Date: 04/17/22 The lungs are clear. Cardiac silhouette is normal in size. No pleural effusions. No pneumothorax. IMPRESSION: No acute process. Other Testing Brain MRI 02/21/22 There are no foci of restricted diffusion to suggest acute infarct. No acute intracranial hemorrhage, midline shift or mass effect is present. Brain volume is normal. Ventricular system is normal. Basal cisterns are patent. There are no extra-axial collections. No parenchymal signal abnormality is present. There is no intracranial mass or pathologic enhancement. Calvarial signal is within normal limits. No evidence for sinusitis. IMPRESSION: Unremarkable MRI of the brain.
--- NOTE | 2022-05-13 19:10 | History & Physical Report ---
Date of Service May 13, 2022 Assessment & Plan (1) Primary osteoarthritis, right shoulder: Plan: Treatment options discussed with patient. He has failed conservative measures and would like to proceed with surgery. Risks, benefits and alternatives to surgery including but not limited to infection, DVT, pain, stiffness, need for revision surgery, damage to blood vessels, damage to nerves, PE, , were discussed with the patient and they wish to proceed. Plan on right OVO motion total shoulder arthroplasty scheduled for [facility] on 05/14/[address] Cobb. All questions answered. Will plan on outpatient PT post op. F/u post op. History of Present Illness Chief Complaint: Right shoulder pain Primary Care Provider: Germán Guzman MD 56yo male with PMHx significant for DM2, CAD hx of VT, HTN, migraines who presents with ogoing right shoulder pain and dysfunction after a work related injury. His pain is interfering with his daily activity and unable to perform his work duties. He has failed conservative measures and would like to proceed with surgical intervention. Patient denies headaches, sweats, fevers, chills, double vision, blurred vision, cough, sore throat, dysphagia, chest pain, sob, wheezing, n/v/d/c, numbness, tingling, fatigue, urinary symptoms, mood disorders. ROS positive for right shoulder pain and stiffness. Allergies Allergy/AdvReac Type Severity Reaction Status Date / Time nortriptyline Allergy Intermediate high blood Verified 04/30/22 09:51 pressure Home Medications Medication Instructions Recorded Confirmed Type lisinopril 5 mg tablet 5 mg PO QAM #90 tabs 06/08/19 04/30/22 History metoprolol tartrate 50 mg tablet 25 mg PO BID 06/08/19 04/30/22 History aspirin 81 mg tablet,delayed 81 mg PO QAM 09/01/19 04/30/22 History release atorvastatin 80 mg tablet 80 mg PO HS 09/01/19 04/30/22 History metformin 1,000 mg tablet 1,000 mg PO BID 09/01/19 04/30/22 History empagliflozin 25 mg tablet 25 mg PO QAM 11/05/21 04/30/22 History syringe with needle 3 mL 23 x 1" #4 ea 02/03/22 04/30/22 Rx (BD Eclipse Luer-Agustín) galcanezumab-gnlm 120 mg/mL See Rx Instructions .Route 03/17/22 04/30/22 Rx subcutaneous pen injector .COMPLEX 30 days #1 mL (Emgality Pen) cholecalciferol (vitamin D3) 100 100 mcg PO QAM 04/14/22 04/30/22 History mcg (4,000 unit) capsule ferrous sulfate 325 mg (65 mg 325 mg PO QAM 04/14/22 04/30/22 History iron) tablet insulin glargine 100 unit/mL (3 42 unit subcut HS 04/14/22 04/30/22 History mL) subcutaneous pen (Lantus Solostar U-100 Insulin) cyanocobalamin (vitamin B-12) 1,000 mcg IM MONTHLY 30 days #1 mL 04/28/22 04/30/22 Rx 1,000 mcg/mL injection solution hydrocodone 5 mg-acetaminophen 325 1 tab PO HS PRN 04/30/22 04/30/22 History mg tablet Past Med/Surg History Medical History (Updated 05/13/22 @ 19:14 by Andre Shields PA-C) Arteriosclerosis of coronary artery cath 15 yrs ago, pt states that stent was not placed d/t difficult location; intermittent chest discomfort per pt with negative work-up in ER and considered to be musculoskeletal-no records on catheterization or ER visits with chest discomfort History of COVID-19 08/2020>LOSS OF SMELL-denies hospitalization *RESOLVED History of heart attack remote, > 15 yrs ago, pt states no stents d/t "difficult blockage location" Hyperlipidemia Hypertension controlled, stable per pt Low iron Migraine without aura, not intractable, without status migrainosus Obstructive sleep apnea, adult CPAP-compliant Type 2 diabetes mellitus IDDM Surgical History (Updated 04/17/22 @ 11:04 by Angela Ramsay PA-C) H/O arthroscopy of knee RT X 2 History of cardiac cath >15 YEARS AGO-Pt states "unable to stent blockage due to location at juncture" History of shoulder surgery 2-RT1-/LEFT History of tonsillectomy History of tooth extraction Hx of appendectomy Family History Mother Family history of diabetes mellitus Father Family history of diabetes mellitus Brother Family history of diabetes mellitus Mother No problems noted. Sister Family history of diabetes mellitus Other No family history of adverse response to anesthesia Social History Smoking Status: Never smoker Second Hand Exposure: Yes (IN THE PAST); Hx Alcohol Use: Yes Alcohol type: beer, wine and hard liquor Preferred Language: Khmer [employer] Required: No marital status: Current Living Situation: Spouse current occupational status: employed Feels Safe at Home: Yes Assistive Devices: CPAP, Denture - Upper and Glasses Review of Systems All systems reviewed & are unremarkable except as noted in HPI & below Physical Exam Constitutional: well developed and well nourished; no acute distress Eyes: PERRL, conjunctivae normal, anicteric sclerae ENMT: external ear and nose normal, oropharynx normal Neck: trachea midline, no thyromegaly Respiratory: normal respiratory effort, lungs clear to auscultation Cardiovascular: RRR, no murmur, no edema Musculoskeletal: Right shoulder: crepitation with ROM. Tenderness anterior glenoid and anterolateral acromion. Positive impingement signs. Pain with strength testing, 5-/5 abduction 5-/5 ER 5/5 IR. FF to 170 degrees, abduction to 140 degrees, ER to 50 degrees. Skin: no rashes, warm and dry Neurologic: patellar DTR's 2+ bilat, sensation intact Psychiatric: A+Ox3, euthymic affect Results & Data ([place]) Diagnostic Findings Right shoulder radiographs: Significant arthritic change GH joint with periarticular osteophyte formation and joint space narrowing. MRI demonstrates intact rotator cuff.
[~2022-05-14 09:57] MED LIST changes: +ACETAMINOPHEN 500 MG TAB PO SCH; -ASPI81TA28 PO; +BUPIVACAINE 0.5 % 5 MG/1 ML PF 10ML VIAL ONE; -CHOL1TAB42 PO; +CeleBREX 200 MG CAP PO SCH; +FAMOTIDINE 20 MG TAB PO SCH; +GABAPENTIN 600 MG DOSE PO SCH; -INSDGIPEN SC; -LISI-461 PO; +LR 15ML/HR IV SCH; -MELO-84 PO; -METF850T PO; -METO25TA3 PO; +METOCLOPRAMIDE HCL 10 MG TABLET PO SCH; -NTRGSL/4 UT; -ROSU40TA PO; +TRANEXAMIC ACID 1,000 MG **IV Intra-op IV SCH; +TRANEXAMIC ACID 1,000 MG **IV Pre-op IV SCH; +ceFAZolin 2000MG 2,000 MG/15 ML SYR IV SCH
--- NOTE | 2022-05-14 11:06 | Hospitalist Consultation ---
Date of Consultation May 14, 2022 Assessment & Plan (1) Primary osteoarthritis, right shoulder: Mr. Balderas is a 56-year-old male with a past medical history of old RI diagnosed on EKG with follow-up cardiac cath which did not show any vessels amenable to stenting and no history of CHF, hypertension, hyperlipidemia, type 2 diabetes mellitus, migraine controlled on Emgality, vitamin B12 and iron deficiency, obstructive sleep apnea on CPAP nightly, and bilateral shoulder pain who presents 05/14 for right total shoulder replacement. We have been consulted for medical management of underlying chronic conditions. Right shoulder osteoarthritis Pending right total shoulder this afternoon DVT prophylaxis, pain control, activity recommendations per primary team Patient has held aspirin for 1 week prior to procedure Neurovascularly intact on exam Preoperative labs 04/17/22 Hemoglobin 13.9, MCV 84 INR 1.0 No leukocytosis Sodium 142, potassium 4.1 Creatinine 0.77, patient with normal creatinine baseline Hemoglobin A1c 6.3% - Iron studies 01/30/2022: Ferritin 21.6, UIBC 275 (N), %FeSat nd UA: Russell COVID 05/14/2020 CXR: No acute process CAD, history of RI - Seen by cardiology 04/30/2022. >4 METS activity at baseline without pain/anginal symptoms. - Abnormal EKG as previously noted with abnormal follow-up stress test and subsequent catheterization was performed in [facility]. Full copy not available, by report RCA stenosis at the bifurcation not amenable to PCI. Famil y history of RI, diabetes. Request for catheterization report and EKG records w consent form faxed to [facility] at [phone], pending fax back to our medical records - Preoperative EKG with normal sinus rhythm, rate 63, QTc 397, no territorial T wave inversions, sinusoidal T wave in lead III, Q wave in aVF and borderline in lead II. No acute ST segment changes Resume aspirin 24 postoperatively if hemodynamically stable, may increase to twice daily for DVT PPx per primary team No cardiac chest pain/shortness of breath/orthopnea preoperatively Continue atorvastatin Continue metoprolol tartrate 25 mg p.o. twice daily Type 2 diabetes mellitus Hold empagliflozin/metformin while inpatient. Patient is no history of UTIs while on SGLT2 inhibitor Last A1c well controlled, 6.3% in March 2022 Patient took dose reduced Lantus 32 units evening preop Continue Lantus 42 units nightly, added SSI CF 20 carb ratio 6 while other medications held Pharmacy consulted for close glycemic management postoperatively. Patient's requirements based on basal dosing are substantially different from weight-based calculations. Glucose checks AC/at bedtime BSG goal 1001 40 BMP daily Chronic migraine Well-controlled on Emgality, this is not due until next week Follow clinically, resume on d/c Hyperlipidemia Statin as noted Hypertension Continue metoprolol as above Lisinopril 5 mg held day of surgery, resume 48 hours postop. If significantly hypertensive may resume 24 hours postop if creatinine remains normal History of anemia, B12/iron deficiency B12 injection not due until next week Continue iron supplementation. May switch to qod from daily ferrous sulfate 325, there is minimal therapeutic benefit of daily compared to qod dosing Preop hemoglobin 13.9, MCV 84, no active bleeding plan KYLE - CPAP qHS DVT prophylaxis: Per primary team Diet: N.p.o. pending surgery, postop type II diabetic, heart healthy CODE STATUS: Full code, surrogate decision maker would be (2) Arteriosclerosis of coronary artery: (3) Type 2 diabetes mellitus: (4) Hyperlipidemia: (5) Obstructive sleep apnea, adult: (6) Diabetic nephropathy: (7) Vitamin B12 deficiency: (8) Vitamin D deficiency: (9) Hypertension: (10) Migraine without aura, not intractable, without status migrainosus: History of Present Illness Attending Physician: Thor Cobb MD History of Present Illness Mr. Balderas is a 56-year-old male with a past medical history of old RI diagnosed on EKG with follow-up cardiac cath which did not show any vessels amenable to stenting and no history of CHF, hypertension, hyperlipidemia, type 2 diabetes mellitus, migraine controlled on Emgality, vitamin B12 and iron deficiency, obstructive sleep apnea on CPAP nightly, and bilateral shoulder pain who presents 05/14 for right total shoulder replacement. We have been consulted for medical management of underlying chronic conditions. Mr. Balderas is seen preoperatively. 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 he reports that he feels generally well, other than his shoulder pain which is a persistent ache at least 2/10 and worsened on shoulder forward flexion and abduction. He reports other than this pain he does not have any pain in or which radiates to the chest. Denies shortness of breath. Denies fever, chills, sweats, nausea, vomiting, diarrhea, recent URI. Preoperative COVID test was negative. He reports he does not have a migraine today, this is well controlled on his Emgality which is not due until next week. He did take his metoprolol this morning. Last took aspirin 7 days ago. Last took lisinopril yesterday. He took his Lantus last night but dose reduced to 32 units in anticipation of n.p.o. Denies leg swelling and orthopnea. No ques tions preoperatively, feels well. Cardiac review: Seen by cardiology 04/30/2022. >4 METS activity at baseline without pain/anginal symptoms. Abnormal EKG as previously noted with abnormal follow-up stress test and subsequent catheterization was performed in [facility]. Full copy not available, by report RCA stenosis at the bifurcation not amenable to PCI. Family history of RI, diabetes. Tobacco use. History of well-controlled diabetes and hypertension. Preoperative EKG with normal sinus rhythm, rate 63, QTc 397, no territorial T wave inversions, sinusoidal T wave in lead III, Q wave in aVF and borderline in lead II. No acute ST segment changes Medical History: Reviewed Medications: Reviewed Surgical History: Reviewed Allergies: Reviewed. Nortriptyline which made him feel poorly, no rash/hives/difficulty breathing with this. No antibiotic allergies per patient. Social History: Alcohol 2-3 times a week, 2-3 drinks in a sitting with last drink last night. Denies history of withdrawal symptoms. Denies current and former tobacco use. Denies medical marijuana/recreational substance use Code Status: Full code. Surrogate decision maker would be his in an emergency Allergies Allergy/AdvReac Type Severity Reaction Status Date / Time nortriptyline Allergy Intermediate high blood Verified 05/14/22 10:16 pressure Home Medications Medication Instructions Recorded Confirmed Type lisinopril 5 mg tablet 5 mg PO QAM #90 tabs 06/08/19 05/14/22 History metoprolol tartrate 50 mg tablet 25 mg PO BID 06/08/19 05/14/22 History aspirin 81 mg tablet,delayed 81 mg PO QAM 09/01/19 05/14/22 History release atorvastatin 80 mg tablet 80 mg PO HS 09/01/19 05/14/22 History metformin 1,000 mg tablet 1,000 mg PO BID 09/01/19 05/14/22 History empagliflozin 25 mg tablet 25 mg PO QAM 11/05/21 05/14/22 History syringe with needle 3 mL 23 x 1" #4 ea 02/03/22 04/30/22 Rx (BD Eclipse Luer-Agustín) galcanezumab-gnlm 120 mg/mL See Rx Instructions .Route 03/17/22 05/14/22 Rx subcutaneous pen injector .COMPLEX 30 days #1 mL (Emgality Pen) cholecalciferol (vitamin D3) 100 100 mcg PO QAM 04/14/22 05/14/22 History mcg (4,000 unit) capsule ferrous sulfate 325 mg (65 mg 325 mg PO QAM 04/14/22 05/14/22 History iron) tablet insulin glargine 100 unit/mL (3 42 unit subcut HS 04/14/22 05/14/22 History mL) subcutaneous pen (Lantus Solostar U-100 Insulin) cyanocobalamin (vitamin B-12) 1,000 mcg IM MONTHLY 30 days #1 mL 04/28/22 05/14/22 Rx 1,000 mcg/mL injection solution hydrocodone 5 mg-acetaminophen 325 1 tab PO HS PRN Pain 04/30/22 05/14/22 History mg tablet Patient History Medical History Arteriosclerosis of coronary artery cath 15 yrs ago, pt states that stent was not placed d/t difficult location; intermittent chest discomfort per pt with negative work-up in ER and considered to be musculoskeletal-no records on catheterization or ER visits with chest discomfort History of COVID-19 08/2020>LOSS OF SMELL-denies hospitalization *RESOLVED History of heart attack remote, > 15 yrs ago, pt states no stents d/t "difficult blockage location" Hyperlipidemia Hypertension controlled, stable per pt Low iron Migraine without aura, not intractable, without status migrainosus Obstructive sleep apnea, adult CPAP-compliant Type 2 diabetes mellitus IDDM Surgical History H/O arthroscopy of knee RT X 2 History of cardiac cath >15 YEARS AGO-Pt states "unable to stent blockage due to location at juncture" History of shoulder surgery 2-RT1-/LEFT History of tonsillectomy History of tooth extraction Hx of appendectomy Family History Mother Family history of diabetes mellitus Father Family history of diabetes mellitus Brother Family history of diabetes mellitus Mother No problems noted. Sister Family history of diabetes mellitus Other No family history of adverse response to anesthesia Social History Smoking Status: Never smoker Second Hand Exposure: Yes (IN THE PAST); Do You Dip or Chew Tobacco: No; Hx Alcohol Use: Yes Alcohol type: beer, wine and hard liquor Preferred Language: Malawian Practice Professional Required: No marital status: Current Living Situation: Spouse current occupational status: employed Feels Safe at Home: Yes Safety Concerns: Feels Safe At This Time Assistive Devices: CPAP, Denture - Upper and Glasses Assistive Devices Comment: GLASSES FOR READING Review of Systems Review of Systems: All systems reviewed & are unremarkable except as noted in Subjective Physical Exam Physical Exam: General: A&Ox3. NAD. Cooperative. HEENT: Atraumatic, normocephalic. Vision and hearing grossly intact Pulm: CTAB A&P. -wheezes, -rales, -rhonchi. Symmetrical chest rise. No increased work of breathing. No respiratory distress. Cardiac: RRR, -mrg. Radial pulses intact and symmetrical. Abdominal: Nontender, nondistended, soft. BS present. Extremities: Warm, dry. Sensation intact in hands and feet to soft touch w ithout asymmetry. Ankle dorsiflexion/plantarflexion intact and symmetrical, hip flexion laying in bed 5/5. Right shoulder palpation overlying lateral shoulder and overlying AC joint. Patient endorses pain on attempted resisted abduction and forward flexion, full testing deferred as patient is pending total replacement. Sausage Maker strength 5/5 bilaterally. Radial pulse intact bilaterally and symmetrical, PT pulses intact and symmetrical bilaterally. Refill brisk in thumbs bilaterally. PG Care Time/CCT Total # of Minutes Spent Total Time Spent with Patient: Total time spent is greater than 50% in coordination of care (as documented) at patient's floor/unit and/or counseling patient: Coding Level of Care Code 55688 Inpt Consult Level 4 Diagnoses Primary osteoarthritis, right shoulder M19.011 Arteriosclerosis of coronary artery I25.10 Type 2 diabetes mellitus E11.9 Hyperlipidemia E78.5 Obstructive sleep apnea, adult G47.33 Diabetic nephropathy E11.21 Vitamin B12 deficiency E53.8 Vitamin D deficiency E55.9 Hypertension I10 Migraine without aura, not intractable, without status migrainosus G43.009
[2022-05-14] MEDS ORDERED: ONDANSETRON INJ 2 MG/ML 2 ML VIAL IV PRN ×2 (12:38→18:41)
[2022-05-14] MEDS ORDERED: ePHEDrine sulfate 50 MG/ML AMP IV PRN (12:38)
[2022-05-14] MEDS ORDERED: ATROPINE SULFATE 0.1 MG/ML 10ML SYR IV PRN (12:38)
[2022-05-14] MEDS ORDERED: LIDOCAINE 2% MPF LOCAL 5 ML VIAL INFIL ONE (13:15)
[2022-05-14] MEDS ORDERED: PROPOFOL IV EMULSION 10 MG/ML 20 ML VIAL IV ONE (13:15)
--- NOTE | 2022-05-14 13:22 | History & Physical Bridge Note ---
Date of Service May 14, 2022 History & Physical Bridge Note I have examined the patient, reviewed the History & Physical and in the interval since the performance of the History & Physical I have noted the following changes of clinical significance: no changes noted
[2022-05-14] MEDS ORDERED: MIDAZOLAM HCL 1 MG/ML 2ML VIAL ONE (13:28)
[2022-05-14] MEDS ORDERED: EpINEphrine HCL INJ 1 MG/ML 1ML SYRINGE ONE ×2 (13:38→16:24)
[2022-05-14] MEDS ORDERED: ROCURONIUM BROMIDE 10 MG/ML 5 ML VIAL IV ONE ×5 (14:06)
[2022-05-14] MEDS ORDERED: fentaNYL citrate 100 MCG/2 ML VIAL ONE (14:07)
--- NOTE | 2022-05-14 18:04 | Operative Report ---
Post Operative Report Pre & Post Diagnosis Operation Date: 05/14/22 12:00 Pre-Op Diagnosis: Right Shoulder glenohumeral osteoarthritis, history of prior arthroscopic surgery Post-Op Diagnosis: Right Shoulder glenohumeral osteoarthritis, history of prior arthroscopic zhong rgery, biceps tendinopathy, labral degeneration, subacromial bursitis. 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 Patient has pre-existing osteoarthritis glenohumeral joint and never fully recovered after injury and has had chronic pain. He did have improvement in range of motion over time with extensive conservative management and PT however continues to have chronic pain. X-rays and MRI demonstrates [id number] glenohumeral joint in the posterior mid to inferior aspect of the glenohumeral joint. He has typical moderate to large circumferential osteophytes consistent with osteoarthritis. Rotator cuff intact on MRI. Description of Procedure Patient was placed placed under regional block and general anesthetic. The right upper extremity had a towel roll placed on the medial border of the scapula and translated to the side of the bed so it could be manipulated off of the bed as necessary. A foam headrest was placed and protective eyewear was placed. Lower extremities were well-padded. SCDs were placed. Patient was positioned in a beachchair position approximately 30 degrees. Shoulder exam demonstrated forward flexion of 170 degrees and abduction to 90 degrees and external rotation to 20 degrees and internal rotation of 40 degrees. There was [id number] crepitation. There are old scars from prior arthroscopic surgery.. The right upper extremity was prepped and draped in sterile fashion. A deltopectoral approach was performed with a longitudinal incision in a deltopectoral interval. The skin was incised sharply and the subcutaneous flaps were elevated. The cephalic vein was dissected out and retracted laterally with the deltoid. The clavipectoral fascia was divided at the lateral margin of the conjoined tendon and extended up to the CA ligament. There was some scar tissue from prior surgery and scarred subacromial bursa and subdeltoid adhesions were released. 1 cm of the pectoralis was released for inferior exposure. A self- retaining retractor was placed. Biceps findings demonstrated normal-appearing biceps tendon in the groove and intra-articularly mild widening and tendinopathy.. Biceps tendon was tenodesed to the pectoralis with bqzdgg-pv-ktdsi #2 FiberWire sutures. The circumflex vessels were tied off with silk ties laterally. There was an anomaly of the subscapularis with a vertically aligned fibers coursing across the tendon of the subscapularis which overlapped the transverse normal appearing muscle fibers. These fibers were released down to the normal-appearing muscle fibers above the level of the circumflex vessels. Muscle fibers of the subscapularis were split above the level of the circumflex vessels and dissected down to the capsule and a Kitner elevator was used to release the inferior fibers of the capsule protecting the axillary nerve inferiorly. A blunt Hohmann retractors were placed between the inferior located axillary nerve and the capsule. This was verified with a tug test. The rotator interval was opened up and release extended down to the glenoid. The subscapularis was taken down with a transtendinous incision leaving a cuff of tissue for repair on the lesser tuberosity. A #1 Vicryl traction suture was placed to control the subscapularis tendon. The incision was carried through the subscapularis to the capsule and then subperiosteally along the inferior capsule exposing the inferior humeral osteophytes. These demonstrated large osteophytes from anterior to posterior and also superior along the edge of the rotator cuff attachment site.. The osteophytes were resected with an artist chisel and rongeur. The humeral head findings demonstrated eburnated bone centrally mild flattening of the humeral head. There was an oblong oval humeral head with the superior and inferior measurement being wider than the anterior posterior. After the osteophytes were resected humeral head is retracted posterior to the glenoid with a Fukuda retractor. The glenoid findings demonstrated the mid to posterior inferior aspect of the glenoid was exposed bone and there was some articular cartilage anteriorly and the entire superior aspect of the glenoid was still good articular cartilage. There was labral degeneration and some anterior moderately large glenoid osteophytes. I preserve the superior posterior labrum and released the proximal biceps and remove that fragment of tendon. The anterior degenerative labrum was resected and the inferior labrum was released off the glenoid for exposure posteriorly using a Handley elevator and electrocautery on bone for the releases. The axillary nerve was protected with the blunt Hohmann inferiorly.. A 360 degree release of the subscapularis was performed releasing the anterior capsule under direct visualization with tenotomy scissors and releasing the capsule off the glenoid anteriorly until it met the previous rotator interval release. Upon completion of the releases the humeral head was reexposed with retractors and humeral head was sized for a size 52 x 48 mm Arthrosurface OVO motion humeral head. The central guidepin was placed. The threaded stop for the reamer was drilled into the head. This was placed at the appropriate depth. The head reamer was used. All debris was irrigated out of the joint. The flat head glenoid exposure reamer was used. The remaining section of bone was removed with a saw. A cut protector was placed. The humerus was then retracted posteriorly again with the Tornier retractor posterior to the glenoid. The guide for the glenoid component was placed and the guide pin was advanced to the appropriate depth. Glenoid reamers were utilized. The depth gauge verified the depth of the reaming. The drill hole for the central post was placed. Trial component was placed at satisfactory position and depth. Trial was removed and the glenoid reamed area was prepared for cementing with several drill holes placed around the reamed area to accept cement. After further irrigation the reamed area was packed with epinephrine soaked tampon sponges. The Palacos cement was vacuum mixed. The cement was injected into the glenoid and compressed with a finger compression device. More cement was placed on the back of the glenoid component and it was inserted into the reamed area in appropriate position with the suction device that held onto the component. When the component was appropriate seating position the suction was removed as well as a suction device and direct pressure was placed on of the component and excess cement was cleared and the component was held in position until the cement fully cured. Final component was 19 x 20 mm glenoid polyethylene component. The anterior osteophytes of the glenoid were then resected with a rongeur. Attention was taken back to the humerus. The humeral head guide was placed onto the humeral head in the appropriate position. The guidepin was readvanced in position. The 12 mm tapered post was inserted to appropriate depth with excellent fixation. At this time 3 drill holes were made along the lateral surface of the lesser tuberosity spanning the distance of the subscapularis attachment and 3 transosseous #5 FiberWire sutures were placed for repair of the subscapularis. After copious irrigation the Whitmore taper of the tapered post was dried and then the humeral component size 52 x 48 was impacted onto the taper post with stable fixation. This was assessed with a Handley elevator to be stable. This was then reduced to the glenoid and range of motion and stability was assessed. After copious irrigation the subscapularis was repaired with the #5 FiberWire sutures using Vitaly-Pacheco suture technique and lateral row soft tissue repair with #2 FiberWire [id number]-ov-cmsna sutures and the rotator interval was closed in maximal external rotation with interrupted #2 FiberWire sutures. Range of motion was assessed demonstrating 160 degrees forward flexion under degrees abduction external and internal rotation to 60 degrees without any tension on repair. The wound was copiously irrigated and 2 Hemovac drains were placed brought out laterally. The pectoralis tendon was then repaired with interrupted wphzqu-ps-vqksp #2 FiberWire sutures placing sutures back to the biceps tendon to reinforce the tenodesis repair there. The deltopectoral interval was repaired with [id number]-xz-vheyb #1 Vicryl sutures and the subcutaneous tissues were closed into 2-0 Vicryl sutures and skin closed with larissa and sterile dressings were applied and a shoulder immobilizer. The patient tolerated the procedure well. Sagar GARVEY my physician assistant at surgery participated as lead dental assistant and was integral part in all aspects of the procedure. He assisted in the procedure with arm positioning soft tissue ret raction instrument management suture management and performed the subcutaneous and skin closure dressings and shoulder immobilizer application and will participate in the postop care the patient. I attest to the content of the Intraoperative Record and any orders documented therein. Any exceptions are noted below.
[2022-05-14] MEDS: fentaNYL citrate 100 MCG/2 ML VIAL IV PRN ×3 (18:12→18:22)
--- NOTE | 2022-05-14 18:28 | Anesthesiology Progress Note ---
Date of Service May 14, 2022 Anesthesia Post Procedure Vital Signs Vital Signs: Temp Pulse Pulse Resp BP Pulse Ox O2 Del Method 05/14/22 18:25 36.3 C L 79 18 147/99 H 94 Oxymask 05/14/22 18:15 75 17 144/96 H 96 Oxymask 05/14/22 18:07 36.0 C L 75 23 130/91 96 Oxymask 05/14/22 10:20 36.9 C 68 20 133/95 97 Room Air O2 Flow Rate 05/14/22 18:25 3 05/14/22 18:15 5 05/14/22 18:07 5 05/14/22 10:20 Pain Intensity Right Shoulder: Pain Intensity: 5 Transfer of Care Handoff Completed per policy Notes Mental Status: alert / awake / arousable and participated in evaluation Patient Amnestic to Procedure: Yes Nausea / Vomiting: adequately controlled Pain: adequately controlled Airway Patency, RR, SpO2: stable & adequate BP & HR: stable & adequate Hydration State: stable & adequate Anesthetic Complications: no major complications apparent and Pt Satisfied with anesthetic care
[2022-05-14] MEDS ORDERED: NALOXONE HCL 0.4 MG/1 ML VIAL/CARP IV PRN (18:41)
[2022-05-14] MEDS ORDERED: MAGNESIUM HYDROXIDE SUSP 30 ML UDC PO PRN (18:41)
[2022-05-14] MEDS ORDERED: bisacodyL 10 MG SUPP PR PRN (18:41)
[2022-05-14] MEDS ORDERED: HYDROmorphone INJ 0.5 MG/0.5 ML SYR IV PRN (18:41)
[2022-05-14] MEDS ORDERED: CYANOCOBALAMIN 1000 MCG/ML VIAL IM SCH (18:41)
[2022-05-14] MEDS ORDERED: DEXTROSE 50% 50 ML SYRINGE IV PRN (18:46)
[2022-05-14] MEDS ORDERED: GLUCOSE 10 TAB/TUBE PO PRN (18:46)
[2022-05-14] MEDS ORDERED: GLUCAGON FOR INJ 1 MG VIAL SQ PRN (18:46)
[2022-05-14] MEDS ORDERED: CARBOHYDRATES FOR HYPOGLYCEMIA PO PRN (18:46)
[2022-05-14] MEDS ORDERED: GLUCOSE 40% GEL 15 GM TUBE PO PRN (18:46)
[2022-05-14] MEDS ORDERED: PHARMACY GLYCEMIC MGMT CONSULT PRN (18:46)
--- NOTE | 2022-05-14 18:48 | XRay Report ---
XR shoulder RT min 2V routine CLINICAL HISTORY: Post shoulder surgery. COMPARISON: Right shoulder radiographs October 23, 2021. FINDINGS: Alignment of the right shoulder arthroplasty is anatomic. There is no fracture or unexpect ed radiopaque foreign body. Drains and skin larissa are present. IMPRESSION: Expected findings following right shoulder arthroplasty. ACT 112: Negative or not required by law. Electronically signed by: Arnie Lorenz M.D. 05/14/2022 6:46 PM
[2022-05-14] MEDS: HYDROCODONE/ACETAMOPHEN 5/325MG TAB PO PRN (19:40)
[2022-05-14] MEDS: SODIUM CHLORIDE 0.9% 1000ML 1,000 ML IV SCH (19:41)
[2022-05-14] MEDS: METOPROLOL TARTRATE 25 MG TAB PO SCH (20:40)
[2022-05-14] MEDS: DOCUSATE SODIUM 100 MG CAP PO SCH (20:40)
[2022-05-14] MEDS: INSULIN ASPART PER UNIT SC SCH (20:49)
[2022-05-14] MEDS ORDERED: LANTUS PER UNIT CHARGE SQ SCH (21:00)
[2022-05-14] MEDS ORDERED: ATORVASTATIN 40 MG TAB PO SCH (21:00)
[2022-05-14] MEDS ORDERED: SENNA 8.6 MG TAB PO SCH (21:00)
[2022-05-14] MEDS ORDERED: metFORMIN HCL 500 MG TAB PO SCH (21:00)
[2022-05-14] MEDS: ceFAZolin 2000MG 2,000 MG/15 ML SYR IV SCH (22:46)
[2022-05-15] MEDS: HYDROCODONE/ACETAMOPHEN 5/325MG TAB PO PRN ×2 (00:56→11:12)
[2022-05-15] MEDS: ceFAZolin 2000MG 2,000 MG/15 ML SYR IV SCH (05:09)
[2022-05-15] MEDS: SODIUM CHLORIDE 0.9% 1000ML 1,000 ML IV SCH (05:28)
[2022-05-15 07:04] VITALS: BP 119/77; PULSE 64; TEMP 98.8; O2SAT 94
--- NOTE | 2022-05-15 07:52 | Orthopedic Progress Note ---
Date of Service May 15, 2022 Assessment & Plan (1) Primary osteoarthritis, right shoulder: Plan: POD 1 s/p Right TSA Discussed case with Dr. Glaser concerning pt's CP last night with hiccups. Dr Glaser will order Troponin this AM. Pending results, pt may be discharged home vs trending further Troponins if elevated. PT/OT. NWB RUE. DVT prophylaxis - SCD's, ASA daily Pain management as written. DC planning - Home with OPPT when medically ready. Admission and Anticipated Discharge Date Admission Date: May 14, 2022 Subjective POD 1 Pt sitting up in bed. Appears comfortable. States he had several episodes of hiccups with CP last night. Non exertional. He feels he may be a little SOB as well. Pain is controlled. No other complaints. Physical Exam Physical Exam: Dressings C/D/I. Continues to have good pain control with his nerve block. Numbness noted in the thumb. Tingling in fingers. Moving his fingers currently but weak. Cap refill less than [address] Results & Data ([facility]) Vital Signs (Past 12 Hours) Vital Signs Temp Pulse Resp BP Pulse Ox O2 Del Method 05/15/22 07:03 37.1 C 64 16 119/77 94 Room Air 05/15/22 04:18 36.8 C 75 16 134/82 93 Room Air 05/14/22 21:40 36.8 C 95 H 18 146/90 H 91 Room Air 05/14/22 20:42 36.7 C 96 H 20 151/84 H 93 Room Air
[2022-05-15 07:55] LABS: Basophils # (auto) 0.01 K/uL (0-0.2); Basophils % (auto) 0.1 %; Eosinophils # (auto) 0.01 K/uL (0-0.50); Eosinophils % (auto) 0.1 %; Hematocrit (blood only) 38.8 % (40.1-51.0); Hemoglobin 12.6 g/dl (14.0-18.0); Immature Granulocytes # (auto) 0.04 K/uL (0.00-0.02); Immature Granulocytes % (auto) 0.3 %; Lymphocytes # (auto) 1.52 K/uL (1.2-3.4); Lymphocytes % (auto) 12.2 %; Mean Corpuscular Hemoglobin 26.9 pg (25.0-34.0); Mean Corpuscular Hgb Conc 32.5 g/dL (32.0-36.0); Mean Corpuscular Volume 82.9 fL (80.0-100.0); Mean Platelet Volume 9.6 fL (9.4-12.4); Monocytes # (auto) 1.09 K/uL (0.24-0.82); Monocytes % (auto) 8.7 %; Neutrophils # (auto) 9.81 K/uL (1.4-6.5); Neutrophils % (auto) 78.6 %; Platelet Count 247 K/uL (130-400); RDW Coefficient of Variation 13.8 % (11.5-14.5); Red Blood Count 4.68 M/uL (4.63-6.08); White Blood Count 12.48 K/ul (4.8-10.8)
[2022-05-15] MEDS ORDERED: metFORMIN HCL 500 MG TAB PO SCH (08:00)
[2022-05-15 08:23] LABS: BUN Creatinine Ratio 25.7 (10-20); Calcium 8.8 mg/dl (8.5-10.1); Creatinine Clr Calc Pharmacy 116.3 ml/min; Est GFR (African American) 122.3 ml/min; Est GFR (Non-African American) 105.5 ml/min; Potassium 3.9 mmol/L (3.5-5.1)
[2022-05-15] MEDS: METOPROLOL TARTRATE 25 MG TAB PO SCH (08:26)
[2022-05-15] MEDS: DOCUSATE SODIUM 100 MG CAP PO SCH (08:26)
[2022-05-15 08:46] LABS: Troponin I High Sensitivity 6.2 pg/ml (0-20)
[2022-05-15] MEDS ORDERED: MULTIVITAMIN TAB PO SCH (09:00)
[2022-05-15] MEDS ORDERED: CHOLECALCIFEROL 1,000 UNITS 25 MCG TAB PO SCH (09:00)
[2022-05-15] MEDS ORDERED: FERROUS SULFATE 325 MG TAB PO SCH (09:00)
[2022-05-15] MEDS ORDERED: lisinopril 5 MG TAB PO SCH (09:00)
[2022-05-15] MEDS ORDERED: ASPIRIN 81 MG ECTAB PO SCH (09:00)
[2022-05-15] MEDS: INSULIN ASPART PER UNIT SC SCH (09:09)
--- NOTE | 2022-05-15 10:54 | Hospitalist Progress Note ---
Date of Service May 15, 2022 Assessment & Plan (1) Primary osteoarthritis, right shoulder: Plan: Mr. Balderas is a 56-year-old male with a past medical history of old NM diagnosed on EKG with follow-up cardiac cath which did not show any vessels amenable to stenting and no history of CHF, hypertension, hyperlipidemia, type 2 diabetes mellitus, migraine controlled on Emgality, vitamin B12 and iron deficiency, obstructive sleep apnea on CPAP nightly, and bilateral shoulder pain who presents 05/14 for right total shoulder replacement. We have been consulted for medical management of underlying chronic conditions. Patient doing well, okay for discharge today. Hemoglobin stable, likely with mildly reactive leukocytosis. May check as outpatient if desired. Creatinine remains at baseline. May resume antihypertensives. Troponin several hours after chest pain is normal, likely musculoskeletal with shoulder. EKG also with no concerning findings. Recommend routine follow-up to PCP Right shoulder osteoarthritis Pending right total shoulder this afternoon DVT prophylaxis, pain control, activity recommendations per primary team Patient has held aspirin for 1 week prior to procedure Neurovascularly intact on exam Preoperative labs 04/17/22 Hemoglobin 13.9, MCV 84, postop 12.6 INR 1.0 No leukocytosis Sodium 142, potassium 4.1 Creatinine 0.77, patient with normal creatinine baseline Hemoglobin A1c 6.3% - Iron studies 01/30/2022: Ferritin 21.6, UIBC 275 (N), %FeSat nd UA: [place] COVID 05/14/2020 CXR: No acute process CAD, history of NM - Seen by cardiology 04/30/2022. >4 METS activity at baseline without pain/anginal symptoms. - Abnormal EKG as previously noted with abnormal follow-up stress test and subsequent catheterization was performed in [facility]. Full copy not available, by report RCA stenosis at the bifurcation not amenable to PCI. Family history of NM, diabetes. Request for catheterization report and EKG records w consent form faxed to [facility] at [phone], pending fax back to our medical records - Preoperative EKG with normal sinus rhythm, rate 63, QTc 397, no territorial T wave inversions, sinusoidal T wave in lead III, Q wave in aVF and borderline in lead II. No acute ST segment changes Resume aspirin No cardiac chest pain/shortness of breath/orthopnea preoperatively Continue atorvastatin Continue metoprolol tartrate 25 mg p.o. twice daily Type 2 diabetes mellitus Hold empagliflozin/metformin while inpatient. Resume on discharge Patient is no history of UTIs while on SGLT2 inhibitor Last A1c well controlled, 6.3% in March 2022 Patient took dose reduced Lantus 32 units evening preop Continue Lantus 42 units nightly, added SSI CF 20 carb ratio 6 while other medications held Pharmacy consulted for close glycemic management postoperatively. Patient's requirements based on basal dosing are substantially different from weight-based calculations. Glucose checks AC/at bedtime BSG goal 1001 40 BMP daily Chronic migraine Well-controlled on Emgality, this is not due until next week Follow clinically, resume on d/c Hyperlipidemia Statin as noted Hypertension Continue metoprolol as above Resume lisinopril History of anemia, B12/iron deficiency B12 injection not due until next week Continue iron supplementation. May switch to qod from daily ferrous sulfate 325, there is minimal therapeutic benefit of daily compared to qod dosing Preop hemoglobin 13.9, MCV 84, postop hemoglobin 12.6 KYLE - CPAP qHS DVT prophylaxis: Per primary team Diet: N.p.o. pending surgery, postop type II diabetic, heart healthy CODE STATUS: Full code, surrogate decision maker would be (2) Arteriosclerosis of coronary artery: (3) Type 2 diabetes mellitus: (4) Hyperlipidemia: (5) Obstructive sleep apnea, adult: (6) Diabetic nephropathy: (7) Vitamin B12 deficiency: (8) Vitamin D deficiency: (9) Hypertension: (10) Migraine without aura, not intractable, without status migrainosus: Admission and Anticipated Discharge Date Admission Date: May 14, 2022 Subjective Doing well postop. No pain this morning. Did have some chest pain early last night postop similar to his prior shoulder pain. Not short of breath at time of assessment, thinks he might of felt a little short of breath overnight but this has improved. No fever, chills, sweats. Sensation in fingertips is slightly dull to pressure, but intact. You are to go home today if possible. No chest pain, chest pressure, palpitations, shortness of breath, nausea, vomiting at time of assessment Review of Systems Review of Systems: All systems reviewed & are unremarkable except as noted in Subjective Physical Exam Physical Exam: General: A&Ox3. NAD. Cooperative. HEENT: Atraumatic, normocephalic. Patient and hearing grossly intact Pulm: CTAB A&P. -wheezes, -rales, -rhonchi. Symmetrical chest rise. No increase in work of breathing. No respiratory distress. Cardiac: RRR, -mrg. Radial pulses intact and symmetrical. Abdominal: Nontender, nondistended, soft. BS present. Extremities: Right shoulder in postop dressing/tape in sling, sensation soft touch intact in fingertips with brisk capillary refill bilaterally. Drain in place with sanguinous material radial pulse intact bilaterally. Results & Data Results & Data ([facility]) Vital Signs (Past 12 Hours) Vital Signs Temp Pulse Resp BP Pulse Ox O2 Del Method 05/15/22 09:00 Room Air 05/15/22 07:03 37.1 C 64 16 119/77 94 Room Air 05/15/22 04:18 36.8 C 75 16 134/82 93 Room Air PG Care Time/CCT Total # of Minutes Spent Total Time Spent with Patient: Total time spent is greater than 50% in coordination of care (as documented) at patient's floor/unit and/or counseling patient: Coding Level of Care Code 54778 Subseq Hosp Care Lvl 2 Diagnoses Primary osteoarthritis, right shoulder M19.011 Arteriosclerosis of coronary artery I25.10 Type 2 diabetes mellitus E11.9 Hyperlipidemia E78.5 Obstructive sleep apnea, adult G47.33 Diabetic nephropathy E11.21 Vitamin B12 deficiency E53.8 Vitamin D deficiency E55.9 Hypertension I10 Migraine without aura, not intractable, without status migrainosus G43.009
--- NOTE | 2022-05-15 12:57 | Electrocardiogram Report ---
Test Reason : Blood Pressure : / mmHG Vent. Rate : 074 BPM Atrial Rate : 074 BPM P-R Int : 162 ms QRS Dur : 096 ms QT Int : 366 ms P-R-T Axes : 054 002 -09 degrees QTc Int : 406 ms Normal sinus rhythm Inferior infarct (cited on or before 30-OCT-2008) Abnormal ECG When compared with ECG of 17-APR-2022 11:19, No significant change was found Confirmed by Rufino Miner ([id number]) on 05/15/2022 12:56:41 PM Referred By: Thor Cobb Confirmed By:Rufino Miner
--- NOTE | 2022-05-15 18:49 | Discharge Summary ---
Date of Service May 15, 2022 Admission HPI Per Admitting Provider 56yo male with PMHx significant for DM2, CAD hx of HI, HTN, migraines who presents with ogoing right shoulder pain and dysfunction after a work related injury. His pain is interfering with his daily activity and unable to perform his work duties. He has failed conservative measures and would like to proceed with surgical intervention. Patient denies headaches, sweats, fevers, chills, double vision, blurred vision, cough, sore throat, dysphagia, chest pain, sob, wheezing, n/v/d/c, numbness, tingling, fatigue, urinary symptoms, mood disorders. ROS positive for right shoulder pain and stiffness. Admission Exam Per Admitting Provider Constitutional: well developed and well nourished; no acute distress Eyes: PERRL, conjunctivae normal, anicteric sclerae ENMT: external ear and nose normal, oropharynx normal Neck: trachea midline, no thyromegaly Respiratory: normal respiratory effort, lungs clear to auscultation Cardiovascular: RRR, no murmur, no edema Musculoskeletal: Right shoulder: crepitation with ROM. Tenderness anterior glenoid and anterolateral acromion. Positive impingement signs. Pain with strength testing, 5-/5 abduction 5-/5 ER 5/5 IR. FF to 170 degrees, abduction to 140 degrees, ER to 50 degrees. Skin: no rashes, warm and dry Neurologic: patellar DTR's 2+ bilat, sensation intact Psychiatric: A+Ox3, euthymic affect Principal Diagnosis Right shoulder osteoarthritis Discharge Exam Dressings C/D/I. Continues to have good pain control with his nerve block. Numbness noted in the thumb. Tingling in fingers. Moving his fingers currently but weak. Cap refill less than [address] Constitutional well developed and well nourished; no acute distress Discharge Data Allergies Allergy/AdvReac Type Severity Reaction Status Date / Time nortriptyline Allergy Intermediate high blood Verified 05/14/22 10:16 pressure Consultations 05/12/22 14:54 Consult Hospitalist Routine Procedures Performed Operation Date: 05/14/22 12:00 Actual Procedures p Right Total Shoulder Arthroplasty(Right) - Thor Cobb MD Ordered Studies 05/14/22 14:56 US - OR guided needle placemen Routine Hospital Course (1) Primary osteoarthritis, right shoulder: POD 1 s/p Right TSA Discussed case with Dr. Glaser concerning pt's CP last night with hiccups. Dr Glaser will order Troponin this AM. Pending results, pt may be discharged home vs trending further Troponins if elevated. PT/OT. NWB RUE. DVT prophylaxis - SCD's, ASA daily Pain management as written. DC planning - Home with OPPT when medically ready. Addendum May 15, 2022 10:25 Troponin I 6.2 this AM. Discussed with Dr Glaser. Pt medically stable and can be dc'd to home. Plan for dc to home today. Addendum May 15, 2022 10:25 Troponin I 6.2 this AM. Discussed with Dr Glaser. Pt medically stable and can be dc'd to home. Plan for dc to home today. Lab Results 05/14/22 05/14/22 05/14/22 Range/Units 10:07 10:19 18:09 WBC (4.8-10.8) K/ul RBC (4.63-6.08) M/uL Hgb (14.0-18.0) g/dl Hct (40.1-51.0) % MCV (80.0-100.0) fL MCH (25.0-34.0) pg MCHC (32.0-36.0) g/dL RDW Std Deviation (36.4-46.3) fL RDW Coeff of Berny (11.5-14.5) % Plt Count (130-400) K/uL MPV (9.4-12.4) fL Immature Gran % (Auto) % Neut % (Auto) % Lymph % (Auto) % [place] % (Auto) % Eos % (Auto) % Baso % (Auto) % Neut # (Auto) (1.4-6.5) K/uL Lymph # (Auto) (1.2-3.4) K/uL [place] # (Auto) (0.24-0.82) K/uL Eos # (Auto) (0-0.50) K/uL Baso # (Auto) (0-0.2) K/uL Immature Gran # (Auto) (0.00-0.02) K/uL Sodium (136-145) mmol/L Potassium (3.5-5.1) mmol/L Chloride (98-107) mmol/L Carbon Dioxide (21-32) mmol/L Anion Gap (3-11) BUN (6-23) mg/dl Creatinine (0.6-1.4) mg/dl Est Cr Clr Drug Dosing ml/min Est GFR ( Amer) ml/min Est GFR (Non-Af Amer) ml/min BUN/Creatinine Ratio (10-20) Glucose (70-99(Fasting)) mg/dl POC Glucose 142 H 127 H (70-99) mg/dl Calcium (8.5-10.1) mg/dl Troponin I High Sens (0-20) pg/ml SARS-CoV-2, RNA, NAAT NEGATIVE (NEGATIVE) 05/14/22 05/15/22 05/15/22 Range/Units 20:15 07:35 07:48 WBC 12.48 H (4.8-10.8) K/ul RBC 4.68 (4.63-6.08) M/uL Hgb 12.6 L (14.0-18.0) g/dl Hct 38.8 L (40.1-51.0) % MCV 82.9 (80.0-100.0) fL MCH 26.9 (25.0-34.0) pg MCHC 32.5 (32.0-36.0) g/dL RDW Std Deviation 41.0 (36.4-46.3) fL RDW Coeff of Berny 13.8 (11.5-14.5) % Plt Count 247 (130-400) K/uL MPV 9.6 (9.4-12.4) fL Immature Gran % (Auto) 0.3 % Neut % (Auto) 78.6 % Lymph % (Auto) 12.2 % [place] % (Auto) 8.7 % Eos % (Auto) 0.1 % Baso % (Auto) 0.1 % Neut # (Auto) 9.81 H (1.4-6.5) K/uL Lymph # (Auto) 1.52 (1.2-3.4) K/uL [place] # (Auto) 1.09 H (0.24-0.82) K/uL Eos # (Auto) 0.01 (0-0.50) K/uL Baso # (Auto) 0.01 (0-0.2) K/uL Immature Gran # (Auto) 0.04 H (0.00-0.02) K/uL Sodium 136 (136-145) mmol/L Potassium 3.9 (3.5-5.1) mmol/L Chloride 104 (98-107) mmol/L Carbon Dioxide 25 (21-32) mmol/L Anion Gap 7 (3-11) BUN 18 (6-23) mg/dl Creatinine 0.70 (0.6-1.4) mg/dl Est Cr Clr Drug Dosing 116.3 ml/min Est GFR ( Amer) 122.3 ml/min Est GFR (Non-Af Amer) 105.5 ml/min BUN/Creatinine Ratio 25.7 H (10-20) Glucose 133 H (70-99(Fasting)) mg/dl POC Glucose 164 H (70-99) mg/dl Calcium 8.8 (8.5-10.1) mg/dl Troponin I High Sens 6.2 (0-20) pg/ml SARS-CoV-2, RNA, NAAT (NEGATIVE) 05/15/22 05/15/22 Range/Units 07:54 11:54 WBC (4.8-10.8) K/ul RBC (4.63-6.08) M/uL Hgb (14.0-18.0) g/dl Hct (40.1-51.0) % MCV (80.0-100.0) fL MCH (25.0-34.0) pg MCHC (32.0-36.0) g/dL RDW Std Deviation (36.4-46.3) fL RDW Coeff of Berny (11.5-14.5) % Plt Count (130-400) K/uL MPV (9.4-12.4) fL Immature Gran % (Auto) % Neut % (Auto) % Lymph % (Auto) % [place] % (Auto) % Eos % (Auto) % Baso % (Auto) % Neut # (Auto) (1.4-6.5) K/uL Lymph # (Auto) (1.2-3.4) K/uL [place] # (Auto) (0.24-0.82) K/uL Eos # (Auto) (0-0.50) K/uL Baso # (Auto) (0-0.2) K/uL Immature Gran # (Auto) (0.00-0.02) K/uL Sodium (136-145) mmol/L Potassium (3.5-5.1) mmol/L Chloride (98-107) mmol/L Carbon Dioxide (21-32) mmol/L Anion Gap (3-11) BUN (6-23) mg/dl Creatinine (0.6-1.4) mg/dl Est Cr Clr Drug Dosing ml/min Est GFR ( Amer) ml/min Est GFR (Non-Af Amer) ml/min BUN/Creatinine Ratio (10-20) Glucose (70-99(Fasting)) mg/dl POC Glucose 143 H 182 H (70-99) mg/dl Calcium (8.5-10.1) mg/dl Troponin I High Sens (0-20) pg/ml SARS-CoV-2, RNA, NAAT (NEGATIVE) Total Time Total Time Spent Total Time Spent (In Minutes): 20 Discharge Plan Discharge Items Patient Disposition: Home - Self-Care Reason For Visit: Right Shoulder Primary Osteoarthritis Discharge Diagnosis: Right Shoulder Osteoarthritis Activity: Per Instructions section Weightbearing: Right non-weightbearing Non-emergency contact: Surgeon Call non-emergency contact if: you have any medication questions, your pain is not controlled, your temperature is above 101.5, your wound has increased redness and your wound has increased drainage Follow-up/Referrals: Thor Cobb MD [Surgeon] - (Follow up with Dr. Cobb in 2 weeks from the day of your surgery for your first post operative visit.) Germán Gillespie MD [Primary Care Provider] - Diet: Carb Consistent or DM2 Addtl Attending Provider Instructions: ACTIVITY RECOMMENDATIONS: SELF CARE INSTRUCTIONS AFTER TOTAL SHOULDER ARTHROPLASTY A. You may do daily exercises as taught in physical therapy while in hospital. No lifting with the operative arm. Please schedule your outpatient physical therapy appointment to begin within 2-3 days after leaving the hospital. Specific restrictions will be written on your physical therapy prescription that is provided to you. B. You are to wear your sling/immobilizer at all times EXCEPT when performing your daily exercises, participating in physical therapy and for hygiene purposes. C. You may perform dry, daily dressing changes. Please keep your incision covered. You may shower 48 hours after surgery. Do not apply soap or any ointment/lotions directly over incision. Do not soak incision in bath tub/swimming pool. D. You may use ice as needed to operative shoulder. SPECIAL CARE INSTRUCTIONS: MEDICATION INSTRUCTIONS: *It is recommended you take Aspirin 325mg daily for four weeks post-op. VERY IMPORTANT TO READ AND REVIEW A. There are a few signs you need to watch for after you are home. Call [facility] at [phone] if you experience any of the followin. Increased severe shoulder pain. Some pain is expected especially when you exercise. 2. Increased swelling in you shoulder or arm; pain or swelling in either upper extremity. 3. Any fluid drainage from the incision. 4. Shortness of breath or chest pain. B. Please call [facility] at [phone] if you have any questions or concerns about your operation or recovery. C. Call your physician if: 1. Temperature is greater than 101 degrees (F). 2. Pain is not relieved by prescribed pain medications. 3. Increase drainage or redness from incision. 4. Unanswered questions or concerns. FOLLOW UP VISIT: Please call [facility] at [phone] to schedule a follow up appointment with Dr. Cobb or his PA in 12-14 days from your surgery date. Stand-Alone Forms: [employer], Smoking Cessation Medications and DC Order Prescriptions: New hydrocodone-acetaminophen 5-325 mg tablet 1 - 2 tab PO Q6H MDD 8 tabs PRN (Reason: pain) Qty: 24 0RF Continued (DME) BD Eclipse Luer-Agustín 3 mL 23 x 1" syringe See Rx Instructions .Route Qty: 4 1RF Rx Instructions: As directed for use with Vitamin B12 injections cyanocobalamin (vitamin B-12) 1,000 mcg/mL solution 1,000 mcg IM MONTHLY 30 Days Qty: 1 5RF Label Comments: TO GET ONCE A MONTH NOW Rx Instructions: Inject once monthly Emgality Pen 120 mg/mL pen injector See Rx Instructions .ROUTE .COMPLEX 30 Days Qty: 1 8RF Rx Instructions: 120mg SQ once per month; empagliflozin 25 mg tablet 25 mg PO QAM lisinopril 5 mg tablet 5 mg PO QAM Qty: 90 metoprolol tartrate 50 mg tablet 25 mg PO BID atorvastatin 80 mg tablet 80 mg PO HS aspirin 81 mg Tablet,Delayed Release (Dr/Ec) 81 mg PO QAM metformin 1,000 mg tablet 1,000 mg PO BID insulin glargine [Lantus Solostar U-100 Insulin] 100 unit/mL (3 mL) Insulin Pen 42 unit SUBCUT HS cholecalciferol (vitamin D3) 100 mcg (4,000 unit) Capsule 100 mcg PO QAM ferrous sulfate 325 mg (65 mg iron) tablet 325 mg PO QAM Discontinued hydrocodone-acetaminophen 5-325 mg tablet 1 tab PO HS PRN (Reason: Pain) Discharge Orders: Discharge Order (Routine); Ordered 05/15/22 Ordered By: Slim Valencia Admission Data Admit Date/Time: 05/14/22 15:08 Attending Provider: Thor Cobb Admit Provider: Thor Cobb Primary Care Provider: Germán Gillespie Other Providers: Gio Evans Other Interventions: Discharge Summary Assessment (RN) Last Done: 05/15/22 11:23
== END 2022-05-15 12:54 | disposition home or self-care (01) | DRG 483 ==
LOC: ASU 09:57 → 3W 15:08

== ENCOUNTER 2023-09-26 00:21 | Observation (INO) ==
[2023-09-26] MEDS ORDERED: ONDANSETRON INJ 2 MG/ML 2 ML VIAL IV STA (00:36)
[2023-09-26] MEDS ORDERED: ASPIRIN CHEW 324 MG PO STA (00:36)
--- NOTE | 2023-09-26 00:43 | Emergency Department Note ---
History of Present Illness General Chief complaint: Chest Pain Stated complaint: CHEST PAIN - CARDIAC Time Seen by Provider: 09/26/23 00:35 History of Present Illness Maximum Pain Intensity: 4 58-year-old male with a past medical history of old MA diagnosed on EKG with follow-up cardiac cath which did not show any vessels amenable to stenting and no history of CHF, hypertension, hyperlipidemia, type 2 diabetes mellitus presents to the ER for worsening chest pain for the past 2 hours. He states he is concerned he might be having a heart attack. Patient does have multiple risk factors. He had 1 beer tonight. Patient denies fever, chills, dyspnea, nausea, vomiting, diaphoresis, radiating pain. Home Medications Medication Instructions Recorded Confirmed Type metoprolol tartrate 50 mg tablet 25 mg PO BID 06/08/19 07/29/23 History aspirin 81 mg tablet,delayed 81 mg PO QAM 09/01/19 07/29/23 History release atorvastatin 80 mg tablet 80 mg PO HS 09/01/19 07/29/23 History metformin 1,000 mg tablet 1,000 mg PO BID 09/01/19 07/29/23 History empagliflozin 25 mg tablet 25 mg PO QAM 11/05/21 07/29/23 History cholecalciferol (vitamin D3) 100 100 mcg PO QAM 04/14/22 07/29/23 History mcg (4,000 unit) capsule ferrous sulfate 325 mg (65 mg 325 mg PO QAM 04/14/22 07/29/23 History iron) tablet insulin glargine 100 unit/mL (3 42 unit subcut HS 04/14/22 07/29/23 History mL) subcutaneous pen (Lantus Solostar U-100 Insulin) lisinopril 5 mg tablet 10 mg PO QAM #90 tabs 05/28/23 07/29/23 History rimegepant 75 mg disintegrating 75 mg PO DAILY PRN migraine 05/29/23 07/29/23 Rx tablet (Nurtec ODT) headache 30 days #8 tabs magnesium glycinate 400 mg PO 07/29/23 07/29/23 History prochlorperazine maleate 10 mg 10 mg PO DAILY PRN nausea and 07/29/23 07/29/23 Rx tablet vomiting 30 days #20 tabs riboflavin (vitamin B2) PO 07/29/23 07/29/23 History onabotulinumtoxinA 200 unit See Rx Instructions IM .COMPLEX #1 08/15/23 08/15/23 Rx solution for injection (Botox) ea atogepant 60 mg tablet (Qulipta) 60 mg PO DAILY 30 days #30 tabs 09/08/23 Rx Allergies Allergy/AdvReac Type Severity Reaction Status Date / Time nortriptyline Allergy Intermediate high blood Verified 07/29/23 12:33 pressure Past Med/Surg History Medical History Low iron Hypertension controlled, stable per pt History of heart attack remote, > 15 yrs ago, pt states no stents d/t "difficult blockage location" History of COVID-19 08/2020>LOSS OF SMELL-denies hospitalization *RESOLVED Migraine without aura, not intractable, without status migrainosus Arteriosclerosis of coronary artery cath 15 yrs ago, pt states that stent was not placed d/t difficult location; intermittent chest discomfort per pt with negative work-up in ER and considered to be musculoskeletal-no records on catheterization or ER visits with chest discomfort Hyperlipidemia Obstructive sleep apnea, adult CPAP-compliant Type 2 diabetes mellitus IDDM Surgical History History of tooth extraction History of cardiac cath >15 YEARS AGO-Pt states "unable to stent blockage due to location at juncture" History of tonsillectomy History of shoulder surgery 2-RT1-/LEFT H/O arthroscopy of knee RT X 2 Hx of appendectomy Family History Mother Family history of diabetes mellitus Father Family history of diabetes mellitus Brother Family history of diabetes mellitus Mother No problems noted. Sister Family history of diabetes mellitus Other No family history of adverse response to anesthesia Social History Smoking Status: Never smoker Second Hand Exposure: Yes (IN THE PAST); Do You Dip or Chew Tobacco: No; Hx Alcohol Use: Yes Alcohol type: beer, wine and hard liquor Preferred Language: Moroccan Communication Ability: Effective Sludge Filtration Attendant Required: No marital status: Current Living Situation: Spouse current occupational status: employed How many Children do You have: 1 Feels Safe at Home: Yes Assistive Devices: None Review of Systems A total of 10 systems reviewed and were otherwise negative Physical Exam Vital Signs Vital Signs - 24 hr 09/26/23 00:28 09/26/23 02:58 09/26/23 03:06 Temperature 36.4 C L Temperature Source Oral Pulse Rate 77 Pulse Rate [Finger] 78 87 Pulse Rhythm [Finger] Regular Regular Pulse Strength [Finger] Normal Normal Respiratory Rate 18 18 18 Respiratory Effort / Characteristics Non-Labored Spontaneous Non-Labored Spontaneous Respiratory Depth Normal Normal Respiratory Pattern Regular Regular Blood Pressure 158/96 H Blood Pressure [Left Arm] 152/92 H 123/93 Blood Pressure Mean 116 Blood Pressure Mean [Left Arm] 112 103 Blood Pressure Position Sitting Blood Pressure Position [Left Arm] Sitting Sitting Pulse Oximetry 97 96 95 Oxygen Delivery Method Room Air Room Air Room Air Sepsis Recent Fever Within 48 Hours No Sepsis New/Unexplained Change in Mental Status N/A Sepsis Action Taken by Nursing No Action Required 09/26/23 03:11 Temperature Temperature Source Pulse Rate Pulse Rate [Finger] 92 H Pulse Rhythm [Finger] Regular Pulse Strength [Finger] Normal Respiratory Rate 17 Respiratory Effort / Characteristics Non-Labored Spontaneous Respiratory Depth Normal Respiratory Pattern Regular Blood Pressure Blood Pressure [Left Arm] 127/86 Blood Pressure Mean Blood Pressure Mean [Left Arm] 99 Blood Pressure Position Blood Pressure Position [Left Arm] Pulse Oximetry 94 Oxygen Delivery Method Room Air Sepsis Recent Fever Within 48 Hours Sepsis New/Unexplained Change in Mental Status Sepsis Action Taken by Nursing VITALS: Vitals are noted on the nurse's note and reviewed by myself. Vital signs stable. GENERAL: Pleasant gentleman, in no acute distress, nondiaphoretic, well- developed well-nourished. SKIN: Capillary reflex less than 2 seconds. HEENT: Normocephalic. PERRLA. EOMI. Nares patent. Mucous membranes moist. Neck is supple without nuchal rigidity. HEART: Regular rate and rhythm chest nontender LUNGS: Clear to auscultation bilaterally without wheezes, rales or rhonchi. No retractions or accessory muscle use. ABDOMEN: Positive bowel sounds x 4. Normal tympanic percussion. Soft, nontender, without masses or organomegaly. Waldrop sign negative. No guarding or rebound tenderness. MUSCULOSKELETAL: No gross musculoskeletal defects. NEURO: Patient was alert and oriented to person place and time. No focal neurological deficits. Course Administered Medications Nitroglycerin (Nitroglycerin Sl 0.4 Mg/Tab Tab) 0.4 mg SL Q5M PRN PRN Reason: Chest Pain Stop: 10/26/23 00:35 Last Admin: 09/26/23 03:05 Dose: 0.4 mg Documented By: Admin: 09/26/23 02:58 Dose: 0.4 mg Documented By: RAÚL Discontinued Medications Aspirin (Aspirin Chew 324 Mg) 324 mg PO NOW STA Stop: 09/26/23 00:37 Last Admin: 09/26/23 00:46 Dose: 324 mg Documented By: RAÚL Ioversol (Optiray 320 125ml) 118 ml IV ONCE ONE Stop: 09/26/23 02:01 Last Admin: 09/26/23 02:00 Dose: 118 ml Documented By: SALLY Ondansetron HCl (Ondansetron Inj 2 Mg/Ml 2 Ml Vial) 4 mg IV NOW STA Stop: 09/26/23 00:37 Last Admin: 09/26/23 00:47 Dose: 4 mg Documented By: RAÚL Medical Decision Making Medical Records Attestation: I reviewed the patient's medical records. Home Medications Current Medication List: was personally reviewed by me Laboratory Data Attestation: I reviewed the patient's lab results. 09/26/23 00:40 09/26/23 00:40 Lab Results 09/26/23 09/26/23 Range/Units 00:40 03:00 WBC 5.99 (4.8-10.8) K/ul RBC 5.47 (4.70-6.10) M/uL Hgb 14.9 (14.0-18.0) g/dl Hct 45.0 (42.0-52.0) % MCV 82.3 (80.0-100.0) fL MCH 27.2 (25.0-34.0) pg MCHC 33.1 (32.0-36.0) g/dL RDW Std Deviation 38.9 (36.4-46.3) fL RDW Coeff of Berny 13.1 (11.5-14.5) % Plt Count 272 (130-400) K/uL MPV 9.1 L (9.4-12.4) fL Immature Gran % (Auto) 0.2 % Neut % (Auto) 46.0 % Lymph % (Auto) 36.7 % Alpine % (Auto) 13.0 % Eos % (Auto) 3.8 % Baso % (Auto) 0.3 % Neut # (Auto) 2.75 (1.40-6.50) K/uL Lymph # (Auto) 2.20 (1.20-3.40) K/uL Alpine # (Auto) 0.78 H (0.11-0.59) K/uL Eos # (Auto) 0.23 (0.00-0.50) K/uL Baso # (Auto) 0.02 (0.00-0.20) K/uL Immature Gran # (Auto) 0.01 (0.01-0.20) K/uL Sodium 139 (136-145) mmol/L Potassium 4.1 (3.5-5.1) mmol/L Chloride 102 (98-107) mmol/L Carbon Dioxide 27 (21-32) mmol/L Anion Gap 10 (3-11) BUN 23 (6-23) mg/dl Creatinine 0.72 (0.6-1.4) mg/dl Est Cr Clr Drug Dosing 106.9 ml/min Est GFR ( Amer) 119.2 ml/min Est GFR (Non-Af Amer) 102.8 ml/min BUN/Creatinine Ratio 31.9 H (10-20) Glucose 103 H (70-99(Fasting)) mg/dl Calcium 10.4 H (8.6-10.3) mg/dl Total Bilirubin 0.4 (0.2-1.0) mg/dl AST 20 (13-39) U/L ALT 22 (7-52) U/L Alkaline Phosphatase 56 (34-104) U/L Troponin I High Sens 5.4 4.2 (0-20) pg/ml Total Protein 7.5 (6.0-8.3) gm/dl Albumin 4.4 (3.4-5.0) gm/dl Globulin 3.1 (2.5-4.0) gm/dl Albumin/Globulin Ratio 1.4 (0.9-2) Lipase 65 (11-82) U/L Imaging Data Attestation: I personally reviewed and interpreted this imaging study as follows: Radiologist's Impression: Chest CTA 09/26/23 01:34 Exam(s): CTA CHEST IV Amt: 118 ML EXAM: CT Angiography Chest With Intravenous Contrast CLINICAL HISTORY: Reason for exam: PE. TECHNIQUE: Axial computed tomographic angiography images of the chest with intravenous contrast. CTDI is 28.11 mGy and DLP is 781.16 mGy-cm. Automated exposure control was utilized for the study. A dose lowering technique was utilized adhering to the principles of ALARA. MIP reconstructed images were created and reviewed. COMPARISON: No relevant prior studies available. FINDINGS: Pulmonary arteries: Unremarkable. No pulmonary embolism. Aorta: No acute findings. No thoracic aortic aneurysm. Lungs: Unremarkable. No mass. No consolidation. Pleural space: Unremarkable. No significant effusion. No pneumothorax. Heart: Unremarkable. No cardiomegaly. No significant pericardial effusion. No evidence of RV dysfunction. Bones/joints: No acute fracture. No dislocation. Soft tissues: Unremarkable. Lymph nodes: Unremarkable. No enlarged lymph nodes. IMPRESSION: Normal chest CTA. No pulmonary embolism. Electronically signed by: Samuel Ivy MD 09/26/23 05:32 AM [facility] Narrative Prior records/ancillary studies reviewed. Triage Nursing notes reviewed. Additional history obtained from family. The patient's history was concerning for chest pain. Differential diagnosis: Etiologies such as cardiac ischemia, aortic dissection, pulmonary embolism, pneumonia, pneumothorax, musculoskeletal, infections, pericarditis, myocarditis, esophageal rupture, gastrointestinal, as well as others were entertained. Physical examination: As above. ER treatment provided: An order was placed for continuous cardiac monitoring. The monitor shows a rate of 60-100 with a sinus rhythm per my interpretation. Aspirin, nitroglycerin and Zofran were ordered On reassessment the patient felt better. Diagnostic interpretation by me: The electrocardiogram was negative for pathologic change. Ordered for chest pain EKG: Normal sinus, poor baseline, no acute ST-T wave changes, rate of 75. Q wave in the inferior lead. Impression normal sinus rhythm Q-wave in the inferior leads independently interpreted by myself I think arrhythmia is unlikely. EKG shows normal sinus rhythm with no interval abnormalities such as QT prolongation or WPW. There are no findings to suggest Brugada syndrome. Cardiac monitoring in the emergency department reveals no tachycardic or bradycardic dysrhythmia. Hypertrophic cardiomyopathy was considered but there are no clear historical elements pointing toward this. EKG is not suggestive. The QRS voltage is not extremely large and there are no suggestive Q waves. The labs Independently Interpreted by myself revealed trop x 2 Imaging studies: Chest x-ray with no acute consolidation, pneumothorax or free air per my independent interpretation. CTA negative for PE HEART SCORE: Hx: high/mod/low suspicion: 1 ECG: ST depression/nonspecific changes/normal: 0 Age: Greater than 65/45-64/less than 45: 1 Risk factors: (Hypertension, hyperlipidemia, diabetes, coronary disease, tobacco use, cocaine use): 2 Troponin: Greater than 2 times normal limits/1-2 times normal limits/normal: 0 Total: 4 Consultation: A consultation was placed with the hospitalist. The case was discussed and diagnostics were reviewed. The patient was evaluated in the ER for further treatment. Exam and history seem consistent chest pain with concerns for cardiac in etiology. Patient has multiple risk factors for heart disease. He was pain- free after nitroglycerin. Medicine was consulted and case was discussed. He admitted to the medical service for further evaluation and workup. By the evaluation outlined above emergent etiologies such as aortic dissection, pulmonary embolism, pneumonia, pneumothorax, infections, pericarditis, myocarditis, gastrointestinal, as well as others were deemed relatively unlikely. The pt informed about the findings as listed above. All questions were answered and pleased with the treatment. The chart was completed utilizing [employer] Speech voice recognition software. Grammatical errors, random word insertions, pronoun errors, and incomplete sentences are an occassional consequence of this system due to software limitations, ambient noise, and hardware issues. Any formal questions or concerns about the content, text, or information contained within the body of this dictation should be directly addressed to the physician fundraising assistant for clarification. Impression & Plan Chest pain Discharge Plan Visit Data Chief Complaint: Chest Pain Stated Complaint: CHEST PAIN - CARDIAC ED Provider: Shruti Hull ED Midlevel Provider: Lelia Arriola Discharge Problem: Chest pain Patient Disposition: Being Evaluated by Hospitalist Condition: Good Forms Stand Alone Forms: My [employer] Prescriptions Prescriptions: No Action Qulipta 60 mg tablet 60 mg PO DAILY 30 Days Qty: 30 2RF Nurtec ODT 75 mg tablet,disintegrating 75 mg PO DAILY PRN (Reason: migraine headache) 30 Days Qty: 8 5RF empagliflozin 25 mg tablet 25 mg PO QAM metoprolol tartrate 50 mg tablet 25 mg PO BID lisinopril 5 mg tablet 10 mg PO QAM Qty: 90 magnesium glycinate 100 mg magnesium capsule 400 mg PO riboflavin (vitamin B2) PO prochlorperazine maleate 10 mg tablet 10 mg PO DAILY PRN (Reason: nausea and vomiting) 30 Days Qty: 20 0RF Botox 200 unit recon soln See Rx Instructions IM .COMPLEX Qty: 1 3RF Rx Instructions: 155 UNITS IM IN THE FACE AND NECK MUSCLES EVERY 12 WEEKS PER MIGRAINE PROTOCOL atorvastatin 80 mg tablet 80 mg PO HS aspirin 81 mg Tablet,Delayed Release (Dr/Ec) 81 mg PO QAM metformin 1,000 mg tablet 1,000 mg PO BID insulin glargine [Lantus Solostar U-100 Insulin] 100 unit/mL (3 mL) Insulin Pen 42 unit SUBCUT HS cholecalciferol (vitamin D3) 100 mcg (4,000 unit) Capsule 100 mcg PO QAM ferrous sulfate 325 mg (65 mg iron) tablet 325 mg PO QAM Referrals Referrals: Germán Gillespie MD [Primary Care Provider] - Discharge Problem: Chest pain Qualifiers: Chest pain type: unspecified Qualified Code(s): R07.9 - Chest pain, unspecified
[2023-09-26 01:02] LABS: Basophils # (auto) 0.02 K/uL (0.00-0.20); Basophils % (auto) 0.3 %; Eosinophils # (auto) 0.23 K/uL (0.00-0.50); Eosinophils % (auto) 3.8 %; Hemoglobin 14.9 g/dl (14.0-18.0); Immature Granulocytes # (auto) 0.01 K/uL (0.01-0.20); Immature Granulocytes % (auto) 0.2 %; Lymphocytes % (auto) 36.7 %; Mean Corpuscular Hemoglobin 27.2 pg (25.0-34.0); Mean Corpuscular Hgb Conc 33.1 g/dL (32.0-36.0); Mean Corpuscular Volume 82.3 fL (80.0-100.0); Mean Platelet Volume 9.1 fL (9.4-12.4); Monocytes # (auto) 0.78 K/uL (0.11-0.59); Neutrophils # (auto) 2.75 K/uL (1.40-6.50); Platelet Count 272 K/uL (130-400); RDW Coefficient of Variation 13.1 % (11.5-14.5); RDW Standard Deviation 38.9 fL (36.4-46.3); Red Blood Count 5.47 M/uL (4.70-6.10); White Blood Count 5.99 K/ul (4.8-10.8)
[2023-09-26 01:12] LABS: Albumin Globulin Ratio 1.4 (0.9-2); Albumin Level 4.4 gm/dl (3.4-5.0); BUN Creatinine Ratio 31.9 (10-20); Bilirubin,Total 0.4 mg/dl (0.2-1.0); Calcium 10.4 mg/dl (8.6-10.3); Creatinine Clr Calc Pharmacy 106.9 ml/min; Est GFR (African American) 119.2 ml/min; Est GFR (Non-African American) 102.8 ml/min; Globulin 3.1 gm/dl (2.5-4.0); Potassium 4.1 mmol/L (3.5-5.1); Total Protein 7.5 gm/dl (6.0-8.3)
[2023-09-26 01:19] LABS: Troponin I High Sensitivity 5.4 pg/ml (0-20)
[2023-09-26] MEDS ORDERED: OPTIRAY 320 125ml IV ONE (02:00)
[2023-09-26] MEDS: NITROGLYCERIN SL 0.4 MG/TAB TAB SL PRN ×3 (02:58→12:16)
--- NOTE | 2023-09-26 05:33 | CT Scan Report ---
Exam(s): CTA CHEST IV Amt: 118 ML EXAM: CT Angiography Chest With Intravenous Contrast CLINICAL HISTORY: Reason for exam: PE. TECHNIQUE: Axial computed tomographic angiography images of the chest with intravenous contrast. CTDI is 28.11 mGy and DLP is 781.16 mGy-cm. Automated exposure control was utilized for the study. A dose lowering technique was utilized adhering to the principles of ALARA. MIP reconstructed images were created and reviewed. COMPARISON: No relevant prior studies available. FINDINGS: Pulmonary arteries: Unremarkable. No pulmonary embolism. Aorta: No acute findings. No thoracic aortic aneurysm. Lungs: Unremarkable. No mass. No consolidation. Pleural space: Unremarkable. No significant effusion. No pneumothorax. Heart: Unremarkable. No cardiomegaly. No significant pericardial effusion. No evidence of RV dysfunction. Bones/joints: No acute fracture. No dislocation. Soft tissues: Unremarkable. Lymph nodes: Unremarkable. No enlarged lymph nodes. IMPRESSION: Normal chest CTA. No pulmonary embolism. Electronically signed by: Samuel Ivy MD 09/26/23 05:32 AM
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
--- NOTE | 2023-09-26 07:55 | Electrocardiogram Report ---
Test Reason : Blood Pressure : / mmHG Vent. 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
--- NOTE | 2023-09-26 08:02 | XRay Report ---
XR chest 1V portable HISTORY: 58 years-old Male Chest pain, nonspecific acute chest pain COMPARISON: CTA chest 09/26/2023 TECHNIQUE: AP view of the chest FINDINGS: Cardiac silhouette is enlarged. No pneumothorax, pleural effusion or airspace consolidation. Bones ap pear grossly intact. Right shoulder arthroplasty. IMPRESSION: No acute process. ACT 112: Negative or not required by law. The above report was generated using voice recognition software. It may contain grammatical, syntax o r spelling errors. Electronically signed by: You Pack M.D. 09/26/2023 8:01 AM
[2023-09-26] MEDS ORDERED: ACETAMINOPHEN 325 MG TAB PO PRN (08:43)
[2023-09-26] MEDS ORDERED: DEXTROSE 50% 50 ML SYRINGE IV PRN (08:43)
[2023-09-26] MEDS ORDERED: GLUCAGON FOR INJ 1 MG VIAL SQ PRN (08:43)
[2023-09-26] MEDS ORDERED: CARBOHYDRATES FOR HYPOGLYCEMIA PO PRN (08:43)
[2023-09-26] MEDS ORDERED: ONDANSETRON 4 MG OD TAB PO PRN (08:43)
[2023-09-26] MEDS ORDERED: GLUCOSE 40% GEL 15 GM TUBE PO PRN (08:43)
[2023-09-26] MEDS ORDERED: GLUCOSE 10 TAB/TUBE PO PRN (08:43)
[2023-09-26] MEDS ORDERED: EMPAGLIFLOZIN 25 MG TAB PO SCH (09:00)
[2023-09-26] MEDS ORDERED: PNEUMOCOCCAL VACCINE (PCV20) 20-VAL CONJ-DIP CRM/PF 0.5 ML SYR IM ONE (09:20)
[2023-09-26] MEDS: INSULIN ASPART PER UNIT CHARGE SC SCH ×4 (10:02→21:39)
[2023-09-26] MEDS: METOPROLOL TARTRATE 25 MG TAB PO SCH ×2 (10:04→21:55)
[2023-09-26] MEDS: lisinopril 10 MG TAB PO SCH (10:04)
[2023-09-26] MEDS: HEPARIN SOD 5,000 UNIT/0.5 ML VIAL SQ SCH ×2 (10:04→21:56)
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
--- NOTE | 2023-09-26 11:52 | XCELERA ---
[id number]
[2023-09-26] MEDS: ATOGEPANT (QULIPTA) 60 MG TAB PO SCH (16:36)
[2023-09-26 17:46] LABS: Adenovirus PCR Not Detected (NotDetected); Bordetella parapertussis PCR Not Detected (NotDetected); Bordetella pertussis PCR Not Detected (NotDetected); Chlamydia pneumoniae PCR Not Detected (NotDetected); Coronavirus 229E PCR Not Detected (NotDetected); Coronavirus HKU1 PCR Not Detected (NotDetected); Coronavirus NL63 PCR Not Detected (NotDetected); Coronavirus OC43PCR Not Detected (NotDetected); Human Metapneumovirus PCR Not Detected (NotDetected); Influenza A PCR Not Detected (NotDetected); Influenza B PCR Not Detected (NotDetected); Mycoplasma pneumoniae PCR Not Detected (NotDetected); Parainfluenza Virus 1 PCR Not Detected (NotDetected); Parainfluenza Virus 2 PCR Not Detected (NotDetected); Parainfluenza Virus 3 PCR Not Detected (NotDetected); Parainfluenza Virus 4 PCR Not Detected (NotDetected); Respiratory Syncytial VirusPCR Not Detected (NotDetected); Rhinovirus/Enterovirus PCR Not Detected (NotDetected)
[2023-09-26 17:54] LABS: Coronavirus CoV-2 (COVID19)PCR DETECTED (NotDetected)
[2023-09-26 19:34] LABS: C Reactive Protein < 0.50 mg/dl (0-0.5)
[2023-09-26 19:42] LABS: Troponin I High Sensitivity 4.3 pg/ml (0-20)
[2023-09-26] MEDS ORDERED: LANTUS PER UNIT CHARGE SQ SCH (21:00)
[2023-09-26] MEDS ORDERED: ATORVASTATIN 40 MG TAB PO SCH (21:00)
[2023-09-27 06:57] LABS: Hematocrit (blood only) 43.8 % (42.0-52.0); Hemoglobin 14.4 g/dl (14.0-18.0); Mean Corpuscular Hgb Conc 32.9 g/dL (32.0-36.0); Mean Corpuscular Volume 82.2 fL (80.0-100.0); Platelet Count 279 K/uL (130-400); RDW Standard Deviation 38.9 fL (36.4-46.3); Red Blood Count 5.33 M/uL (4.70-6.10); White Blood Count 7.64 K/ul (4.8-10.8)
[2023-09-27 07:19] LABS: Anion Gap 6 (3-11); BUN Creatinine Ratio 24.3 (10-20); Blood Urea Nitrogen 18 mg/dl (6-23); C Reactive Protein < 0.50 mg/dl (0-0.5); Calcium 9.4 mg/dl (8.6-10.3); Carbon Dioxide 29 mmol/L (21-32); Chloride 105 mmol/L (98-107); Est GFR (African American) 117.8 ml/min; Est GFR (Non-African American) 101.7 ml/min; Glucose 88 mg/dl (70-99(Fasting)); Potassium 3.9 mmol/L (3.5-5.1); Sodium 140 mmol/L (136-145)
[2023-09-27] MEDS ORDERED: ASPIRIN 81 MG ECTAB PO SCH (09:00)
[2023-09-27] MEDS: ATOGEPANT (QULIPTA) 60 MG TAB PO SCH (09:09)
[2023-09-27] MEDS: lisinopril 10 MG TAB PO SCH (09:10)
[2023-09-27] MEDS: METOPROLOL TARTRATE 25 MG TAB PO SCH (09:10)
[2023-09-27] MEDS: HEPARIN SOD 5,000 UNIT/0.5 ML VIAL SQ SCH (09:11)
[2023-09-27] MEDS: INSULIN ASPART PER UNIT CHARGE SC SCH ×2 (09:17→13:42)
--- NOTE | 2023-09-27 11:46 | Cardiology Progress Note ---
Date of Service September 27, 2023 Assessment & Plan (1) Chest pain: (2) CAD (coronary artery disease): (3) Bronchospasm: (4) Hypertension: (5) Type 2 diabetes mellitus: (6) Hyperlipidemia: (7) Chronic migraine without aura: Plan Recent viral syndrome with serology now positive for COVID strongly suggests that his chest discomfort is due to a pleurisy type phenomenon rather than angina. No evidence of acute coronary syndrome with low level/flat troponin curve. May be unable to annularly hallways due to COVID positivity, however recommended that he gradually increase his activity upon returning home and report any exertional symptoms (which could prompt further evaluation of his coronary artery disease). In the absence of exertional symptoms, no further cardiac workup needed. If his BP remains elevated, could increase lisinopril as outpatient. Recommend lipid profile and hemoglobin A1c to address risk factor control, also to be obtained as outpatient. Continue aspirin and high-dose atorvastatin indefinitely. As noted, he did have some evidence of bronchospasm on exam yesterday, would recommend checking spirometry or peak flow meter in the future to see if inhalers would be indicated. Okay for discharge from a cardiac standpoint. Admission and Anticipated Discharge Date Admission Date: September 26, 2023 Subjective Uneventful night. However, serology did return positive for COVID. Third troponin level was unremarkable. His chest discomfort resolved overnight, he felt well this morning. No chest pain, dyspnea, or other somatic complaints. Telemetry unremarkable, sinus rhythm in the 60 bpm range Physical Exam Physical Exam: Not examined (COVID-positive) Results & Data Vital Signs (Past 12 Hours) Vital Signs Temp Pulse Pulse Resp BP Pulse Ox O2 Del Method 09/27/23 08:46 97.9 F 60 18 136/87 96 Room Air 09/27/23 08:00 59 L 09/27/23 03:41 99.0 F 55 L 16 132/82 98 Room Air, CPAP 09/27/23 02:04 60 19 96 09/27/23 00:18 68 21 94 PG Care Time/CCT Total # of Minutes Spent Total Time Spent with Patient: Total time spent is greater than 50% in coordination of care (as documented) at patient's floor/unit and/or counseling patient: Coding Level of Care Code 02756 SUB INP/OBS CARE 2/35MIN Diagnoses Chest pain R07.9 Chest pain type: unspecified CAD (coronary artery disease) I25.10 Bronchospasm J98.01 Hypertension I10 Type 2 diabetes mellitus E11.9 Hyperlipidemia E78.5 Chronic migraine without aura G43.709 (1) Chest pain Chest pain type: unspecified Qualified Code(s): R07.9 - Chest pain, unspecified
--- NOTE | 2023-09-27 15:15 | Discharge Summary ---
Date of Service September 27, 2023 Admission HPI Per Admitting Provider 58 yo male with PMHx of HLD, HTN, CAD, s/p SD, migraines, R shoulder replacement, and DM2 presents with chest pain. Last night before bed patient started experiencing left-sided chest pain/pressure which progressively worsened. Non exertional. He had some associated shortness of breath and nausea. Otherwise denies fever, chills, fatigue, abdominal pain, vomiting, dysuria, diarrhea, extremity numbness/tingling/weakness, diaphoresis. Denies pain on deep inhalation and with chest wall movement. He does endorse some mild anxiety not on medication. Denies history of acid reflux. He has a history of abnormal stress test leading to heart catheterization which he states had some blockages have been medically managed did not require stenting. He denies having CHF. Principal Diagnosis chest pain. Discharge Exam Constitutional WD/WN, vitals as above Neck trachea midline, no thyromegaly Respiratory normal respiratory effort, lungs clear to auscultation Cardiovascular RRR, no murmur, no edema Gastrointestinal (Abdomen) normal bowel sounds, soft, nontender, no hepatosplenomegaly Psychiatric A+Ox3, euthymic affect Discharge Data Allergies Allergy/AdvReac Type Severity Reaction Status Date / Time nortriptyline Allergy Intermediate high blood Verified 09/26/23 16:04 pressure Consultations 09/26/23 04:05 ED Decision to Admit Stat 09/26/23 08:28 Consult Cardiology Routine Ordered Studies 09/26/23 01:34 CT angio chest PE protocol Stat Hospital Course (1) Chest pain: 58 yo male with PMHx of HLD, HTN, CAD, s/p SD, migraines, R shoulder replacement, and DM2 presents with chest pain. #Chest Pain -presented with 1 day of non exertional constant chest pressure. Some associated sob and nausea. He has a h/o abnormal stress test and CAD found on previous catheterization, medically managed. In the ED he received 324mg ASA and nitrostat x2 which did help with his pain. No reproducible chest pain. Tachy cardic on admission. -troponin x2 wnl -EKG without ST changes -CTA without PE COVID positive. Unsure of exact date of when he had this infection given negative inflammatory markers and also that PCR can be positive for up to 90 days. However, this viral infection could be contributing to his chest pain. Given that his symptoms have improved, will discharge with close PCP followup. #CAD #H/o SD -cont. statin, metoprolol, jardiance, aspirin #Migraines -cont. atogepant #DM2 -hold home metformin -cont. jardiance -cont. insulin glargine + SSI #HLD -cont. statin (2) Chronic migraine without aura: (3) Hypertension: (4) Arteriosclerosis of coronary artery: (5) Type 2 diabetes mellitus: (6) Obstructive sleep apnea, adult: (7) Hyperlipidemia: Total Time Total Time Spent Total Time Spent (In Minutes): 32 Discharge Plan Discharge Items Patient Disposition: Home - Self-Care Reason For Visit: CHEST PAIN Discharge Diagnosis: chest pain Condition on Discharge: Good Activity: Resume your previous activity Non-emergency contact: Primary Care Provider Call non-emergency contact if: you have any medication questions Follow-up/Referrals: Germán Gillespie MD [Primary Care Provider] - Diet: Carb Consistent or DM2 and Heart Healthy Addtl Attending Provider Instructions: Recommend rest for the next 3 days. Call [facility] to see when you are able to return. Pending Studies at Discharge: No Stand-Alone Forms: [facility]Scan, Work/School Release, Smoking Cessation Medications and DC Order Prescriptions: Continued Qulipta 60 mg tablet 60 mg PO DAILY 30 Days Qty: 30 2RF Nurtec ODT 75 mg tablet,disintegrating 75 mg PO DAILY PRN (Reason: migraine headache) 30 Days Qty: 8 5RF empagliflozin 25 mg tablet 25 mg PO QAM metoprolol tartrate 50 mg tablet 25 mg PO BID magnesium glycinate 100 mg magnesium capsule 400 mg PO QAM prochlorperazine maleate 10 mg tablet 10 mg PO DAILY PRN (Reason: nausea and vomiting) 30 Days Qty: 20 0RF Botox 200 unit recon soln See Rx Instructions IM .COMPLEX Qty: 1 3RF Rx Instructions: 155 UNITS IM IN THE FACE AND NECK MUSCLES EVERY 12 WEEKS PER MIGRAINE PROTOCOL. As of 09/26/23 - Per pt he hasn't started this yet. atorvastatin 80 mg tablet 80 mg PO HS aspirin 81 mg Tablet,Delayed Release (Dr/Ec) 81 mg PO QAM metformin 1,000 mg tablet 1,000 mg PO BID insulin glargine [Lantus Solostar U-100 Insulin] 100 unit/mL (3 mL) Insulin Pen 38 unit SUBCUT HS cholecalciferol (vitamin D3) 100 mcg (4,000 unit) Capsule 100 mcg PO QAM ferrous sulfate 325 mg (65 mg iron) tablet 325 mg PO QAM riboflavin (vitamin B2) [Vitamin B-2] 100 mg Tablet 100 mg PO DAILY Changed lisinopril 10 mg tablet 10 mg PO PM Qty: 30 0RF Discharge Orders: Discharge Order (Routine); Ordered 09/27/23 Ordered By: Justin Sampson Admission Data Admit Date/Time: 09/26/23 05:51 Attending Provider: Julianna Boggs Admit Provider: Akira Dick Primary Care Provider: Germán Gillespie Other Providers: Julianna Boggs; Omero Givens; Edison Gilbert; Rufino Miner; Jacinto Welch; Hilton Parrish; Phong Reaves Jr; Kelechi Castaneda; Kasandra Avila; Silvia Martin; Mark Tena; Mark Singh; George Ochoa; Patti Solomon; Christa Giles; Ambrose James; Eliazar Cohn; Marek Piedra Other Interventions: Discharge Summary Assessment (RN) Last Done: 09/27/23 17:19 Coding Level of Care Code 47225 INP/OBS DISCH >30 MIN Diagnoses Chest pain R07.9 Chest pain type: unspecified Chronic migraine without aura G43.709 Hypertension I10 Arteriosclerosis of coronary artery I25.10 Type 2 diabetes mellitus E11.9 Obstructive sleep apnea, adult G47.33 Hyperlipidemia E78.5
== END 2023-09-27 17:21 | disposition home or self-care (01) ==
LOC: SUATTDRO → 2N 00:21 → ED 00:21 → 2N 08:40

== ENCOUNTER 2024-09-16 20:24 | Observation (INO) ==
[2024-09-16 20:55] LABS: Basophils # (auto) 0.03 K/uL (0.00-0.20); Basophils % (auto) 0.3 %; Eosinophils # (auto) 0.27 K/uL (0.00-0.50); Eosinophils % (auto) 3.1 %; Hematocrit (blood only) 47.9 % (42.0-52.0); Hemoglobin 15.4 g/dl (14.0-18.0); Immature Granulocytes # (auto) 0.03 K/uL (0.01-0.20); Immature Granulocytes % (auto) 0.3 %; Lymphocytes # (auto) 2.61 K/uL (1.20-3.40); Lymphocytes % (auto) 29.8 %; Mean Corpuscular Hemoglobin 27.2 pg (25.0-34.0); Mean Corpuscular Hgb Conc 32.2 g/dL (32.0-36.0); Mean Corpuscular Volume 84.5 fL (80.0-100.0); Mean Platelet Volume 9.4 fL (9.4-12.4); Neutrophils # (auto) 5.11 K/uL (1.40-6.50); Neutrophils % (auto) 58.5 %; Platelet Count 299 K/uL (130-400); RDW Coefficient of Variation 13.2 % (11.5-14.5); RDW Standard Deviation 40.8 fL (36.4-46.3); Red Blood Count 5.67 M/uL (4.70-6.10); White Blood Count 8.75 K/ul (4.8-10.8)
--- NOTE | 2024-09-16 20:59 | Emergency Department Note ---
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 exam: chest pain, epigastric pain, blood in stools. TECHNIQUE: Axial computed tomography images of the abdomen and pelvis with intravenous contrast. CTDI is 26 mGy and DLP is 1207 mGy-cm. Automated exposure control was utilized for the study. A dose lowering technique was utilized adhering to the principles of ALARA. CONTRAST: Patient received 119 ml opti 320 of IV contrast COMPARISON: 07/15/2024. FINDINGS: ABDOMEN: Liver: There is a 1.2 cm lesion noted in the right lobe of the liver. Gallbladder and bile ducts: No calcified stones. No ductal dilation. Pancreas: No mass. No ductal dilation. Spleen: No splenomegaly. Adrenals: The left adrenal gland is unremarkable. There is a 2 cm nodule in the right adrenal gland.. Kidneys and ureters: No solid mass. No hydronephrosis. Stomach and bowel: The stomach is distended containing retained foodstuffs. There is air and stool noted in the colon. There may be thickening of the ochoa of the sigmoid colon and rectum. No extravasation of contrast is noted into the bowel.. PELVIS: Appendix: The appendix is not visualized.. Bladder: No calculi are noted within the bladder.. Reproductive: Unremarkable as visualized. ABDOMEN and PELVIS: Intraperitoneal space: No free air. No significant fluid collection. Bones/joints: There are degenerative changes in the spine.. Soft tissues: Unremarkable. Vasculature: No abdominal aortic aneurysm. Lymph nodes: No enlarged lymph nodes. IMPRESSION: There may be thickening of the ochoa of the sigmoid colon and rectum. This may be due to under distention. Cannot exclude colitis. No extravasation of contrast is noted into the bowel to suggest an area of active GI bleeding.. A 1.2 cm lesion is again noted in the right lobe of the liver which may represent a hemangioma. A 2 cm nodule in the right adrenal gland appears unchanged and may represent an adenoma. Electronically signed by: Nasir Dalton MD 09/16/24 23:52 PM Discharge Plan Visit Data Chief Complaint: Chest Pain Stated Complaint: CHEST PAIN, SOB ED Provider: Cruz Dominguez ED Midlevel Provider: Dayan Cheng Discharge Problem: Chest pain, Bright red rectal bleeding Patient Disposition: Admitted As Inpatient Condition: Good Discharge Instructions Interventions: ED Discharge Assessment Last Done: 09/17/24 04:43 Discharge Problem: Chest pain Qualifiers: Chest pain type: unspecified Qualified Code(s): R07.9 - Chest pain, unspecified
[2024-09-16 21:11] LABS: Albumin Globulin Ratio 1.9 (0.9-2); BUN Creatinine Ratio 22.6 (10-20); Bilirubin,Total 0.4 mg/dl (0.2-1.0); Calcium 10.2 mg/dl (8.6-10.3); Creatinine Clr Calc Pharmacy 90.3 ml/min; Globulin 2.6 gm/dl (2.5-4.0); Magnesium 1.9 mg/dl (1.7-2.4); Potassium 4.1 mmol/L (3.5-5.1); Total Protein 7.6 gm/dl (6.0-8.3)
[2024-09-16] MEDS: LIDOCAINE 5% 1 PATCH TD STA (21:12)
[2024-09-16] MEDS: ACETAMINOPHEN 1,000 MG/100 ML VIAL IV STA (21:13)
[2024-09-16 21:16] LABS: INR 0.9 (0.9-1.1); Prothrombin Time 10.3 Seconds (9.0-12.0)
[2024-09-16 21:17] LABS: Troponin I High Sensitivity 4.2 pg/ml (0-20)
[2024-09-16] MEDS: OPTIRAY 320 125ml IV ONE (21:29)
[2024-09-16] MEDS: FAMOTIDINE 20MG IV PUSH 20 MG/5 ML SYR IV STA (21:39)
[2024-09-16] MEDS: MoRPHine SULFATE 4 MG/ML 1 ML CARP\\VIAL IV STA (23:30)
[2024-09-16] MEDS: ONDANSETRON INJ 2 MG/ML 2 ML VIAL IV STA (23:31)
[2024-09-16 23:46] LABS: Troponin I High Sensitivity 4.2 pg/ml (0-20)
--- NOTE | 2024-09-16 23:46 | CT Scan Report ---
Exam(s): CTA CHEST IV Amt: 119 ml opti 320 EXAM: CT Angiography Chest With Intravenous Contrast CLINICAL HISTORY: Reason for exam: PE. TECHNIQUE: Axial computed tomographic angiography images of the chest with intravenous contrast. CTDI is 26 mGy and DLP is 1207 mGy-cm. Automated exposure control was utilized for the study. A dose lowering technique was utilized adhering to the principles of ALARA. MIP reconstructed images were created and reviewed. COMPARISON: 07/15/2024. FINDINGS: Pulmonary arteries: No pulmonary embolism is seen. Aorta: No thoracic aortic aneurysm. Lungs: No mass. No consolidation. Pleural space: No significant effusion. No pneumothorax. Heart: The heart is enlarged and contains coronary artery calcifications.. Bones/joints: There are degenerative changes in the spine. There are postoperative changes involving the right humerus. Soft tissues: Unremarkable. Lymph nodes: No enlarged lymph nodes. IMPRESSION: No pulmonary embolism is seen. The heart is enlarged and contains coronary artery calcifications.. Electronically signed by: Nasir Dalton MD 09/16/24 23:45 PM
--- NOTE | 2024-09-16 23:47 | XRay Report ---
Exam(s): XR CXR 1 VIEW EXAM: XR Chest, 1 View CLINICAL HISTORY: Reason for exam: Chest pain, nonspecific. TECHNIQUE: Frontal view of the chest. COMPARISON: 09/12/2024. FINDINGS: There is a poor inspiratory effort. Lungs: No consolidation. Pleural space: No pleural effusion is seen. No pneumothorax. Heart: The heart is top normal in size.. Mediastinum: There is mild uncoiling of thoracic aorta.. Bones/joints: There are postoperative changes involving the right humerus. IMPRESSION: No acute pulmonary disease. Electronically signed by: Nasir Dalton MD 09/16/24 23:46 PM
--- NOTE | 2024-09-16 23:52 | CT Scan Report ---
Exam(s): CT ABDOMEN + PELVIS With Contrast IV Amt: 119 ml opti 320 EXAM: CT Abdomen and Pelvis With Intravenous Contrast CLINICAL HISTORY: Reason for exam: chest pain, epigastric pain, blood in stools. TECHNIQUE: Axial computed tomography images of the abdomen and pelvis with intravenous contrast. CTDI is 26 mGy and DLP is 1207 mGy-cm. Automated exposure control was utilized for the study. A dose lowering technique was utilized adhering to the principles of ALARA. CONTRAST: Patient received 119 ml opti 320 of IV contrast COMPARISON: 07/15/2024. FINDINGS: ABDOMEN: Liver: There is a 1.2 cm lesion noted in the right lobe of the liver. Gallbladder and bile ducts: No calcified stones. No ductal dilation. Pancreas: No mass. No ductal dilation. Spleen: No splenomegaly. Adrenals: The left adrenal gland is unremarkable. There is a 2 cm nodule in the right adrenal gland.. Kidneys and ureters: No solid mass. No hydronephrosis. Stomach and bowel: The stomach is distended containing retained foodstuffs. There is air and stool noted in the colon. There may be thickening of the ochoa of the sigmoid colon and rectum. No extravasation of contrast is noted into the bowel.. PELVIS: Appendix: The appendix is not visualized.. Bladder: No calculi are noted within the bladder.. Reproductive: Unremarkable as visualized. ABDOMEN and PELVIS: Intraperitoneal space: No free air. No significant fluid collection. Bones/joints: There are degenerative changes in the spine.. Soft tissues: Unremarkable. Vasculature: No abdominal aortic aneurysm. Lymph nodes: No enlarged lymph nodes. IMPRESSION: There may be thickening of the ochoa of the sigmoid colon and rectum. This may be due to under distention. Cannot exclude colitis. No extravasation of contrast is noted into the bowel to suggest an area of active GI bleeding.. A 1.2 cm lesion is again noted in the right lobe of the liver which may represent a hemangioma. A 2 cm nodule in the right adrenal gland appears unchanged and may represent an adenoma. Electronically signed by: Nasir Dalton MD 09/16/24 23:52 PM
[2024-09-17 01:20] LABS: Appearance Urine Clear (Clear); Bacteria Urine Automated None Seen (None Seen); Bilirubin Urine Negative (Negative); Blood Urine Negative (Negative); Cast Urine Automated 0-2 /lpf (0-2); Color Urine Dark Yellow; Epithelial Cell Urine Auto 0-2 /hpf (0-2); Glucose Urine UA 3+ (Negative); Ketones Urine Negative (Negative); Leukocyte Esterase Urine Negative (Negative); Nitrite Urine Negative (Negative); Protein Urine 1+ (Negative); RBC Urine Automated 0-2 /hpf (0-2); Specific Gravity Urine > 1.045 (1.000-1.030); Urobilinogen Urine Negative (Negative); WBC Urine Automated 0-5 /hpf (0-5)
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
[2024-09-17 03:20] LABS: Uric Acid 4.4 mg/dl (2.6-7.2)
[2024-09-17] MEDS: MAGNESIUM SULFATE / D5W 1 GM/100 ML BAG IV ONE (03:39)
[2024-09-17] MEDS ORDERED: traMADol HCL 50 MG TABLET PO PRN (04:10)
[2024-09-17] MEDS ORDERED: GLUCAGON FOR INJ 1 MG VIAL SQ PRN (04:10)
[2024-09-17] MEDS ORDERED: GLUCOSE 10 TAB/TUBE PO PRN (04:10)
[2024-09-17] MEDS ORDERED: GLUCOSE 40% GEL 15 GM TUBE PO PRN (04:10)
[2024-09-17] MEDS ORDERED: ONDANSETRON INJ 2 MG/ML 2 ML VIAL IV PRN (04:10)
[2024-09-17] MEDS ORDERED: ACETAMINOPHEN 325 MG TAB PO PRN (04:10)
[2024-09-17] MEDS ORDERED: DEXTROSE 50% 50 ML SYRINGE IV PRN (04:10)
[2024-09-17] MEDS ORDERED: CARBOHYDRATES FOR HYPOGLYCEMIA PO PRN (04:10)
[2024-09-17 04:32] VITALS: RESP 18
[2024-09-17] MEDS: oxyCODONE HCL IR 5 MG TAB (IMMEDIATE RELEASE) PO PRN (06:34)
--- NOTE | 2024-09-17 07:43 | Electrocardiogram Report ---
Test Reason : Blood Pressure : */* mmHG Vent. Rate : 76 BPM Atrial Rate : 76 BPM P-R Int : 162 ms QRS Dur : 90 ms QT Int : 372 ms P-R-T Axes : 79 2 -18 degrees QTcB Int : 418 ms Sinus rhythm with occasional Premature ventricular complexes Cannot rule out Inferior infarct (cited on or before 15-Jul-2024) Nonspecific T wave abnormality Abnormal ECG When compared with ECG of 16-Sep-2024 20:30, Nonspecific T wave abnormality now evident in Anterior leads Confirmed by Kelechi Castaneda ([id number]) on 09/17/2024 7:43:22 AM Referred By: REFERRED SELF Confirmed By: Kelechi Castaneda
--- NOTE | 2024-09-17 07:43 | Electrocardiogram Report ---
Test Reason : Blood Pressure : */* mmHG Vent. Rate : 91 BPM Atrial Rate : 91 BPM P-R Int : 162 ms QRS Dur : 88 ms QT Int : 322 ms P-R-T Axes : 61 -6 15 degrees QTcB Int : 396 ms Sinus rhythm with occasional Premature ventricular complexes Inferior infarct (cited on or before 15-Jul-2024) Abnormal ECG When compared with ECG of 12-Sep-2024 19:10, Premature ventricular complexes are now Present Confirmed by Kelechi Castaneda ([id number]) on 09/17/2024 7:42:57 AM Referred By: REFERRED SELF Confirmed By: Kelechi Castaneda
[2024-09-17 08:10] LABS: Chol HDL Ratio 3.2 (0-5)
[2024-09-17 08:17] LABS: Troponin I High Sensitivity 5.5 pg/ml (0-20)
[2024-09-17 09:22] LABS: Estimated Average Glucose 120 mg/dl; Hemoglobin A1C 5.8 % (4.5-5.6)
[2024-09-17] MEDS: ASPIRIN 81 MG ECTAB PO SCH (09:56)
[2024-09-17] MEDS: CHOLECALCIFEROL 25 MCG (1000 UNITS) TAB PO SCH (09:56)
[2024-09-17] MEDS: FERROUS SULFATE 325 MG TAB PO SCH (09:56)
[2024-09-17] MEDS: MAGNESIUM OXIDE 400 MG TAB PO SCH (09:57)
[2024-09-17] MEDS: METOPROLOL TARTRATE 25 MG TAB PO SCH (09:57)
[2024-09-17] MEDS: DULoxetine HCL 30 MG CAP PO SCH (09:57)
[2024-09-17] MEDS: INSULIN ASPART PER UNIT CHARGE SC SCH (10:01)
[2024-09-17] MEDS ORDERED: NITROGLYCERIN SL 0.4 MG/TAB TAB SL PRN (10:43)
[2024-09-17] MEDS: NITROGLYCERIN SL 0.4 MG/TAB TAB SL STA (10:57)
[2024-09-17] MEDS: NITROGLYCERIN SL 0.4 MG/TAB TAB ONE (10:57)
--- NOTE | 2024-09-17 10:57 | Hospitalist Progress Note ---
Date of Service September 17, 2024 Assessment & Plan (1) Chest pain: (2) CAD (coronary artery disease): (3) Colitis: (4) GI bleed: (5) Hypertension: (6) Obstructive sleep apnea, adult: (7) Type 2 diabetes mellitus: Plan Chest pain of uncertain etiology/hypertension/CAD- The patient will be admitted to telemetry for serial cardiac enzymes, serial EKG's, cardiac rhythm monitoring and a 2-D echocardiogram with Dopplers. CTA chest PE protocol negative for PE Chest x-ray negative EKG with normal sinus rhythm and PVCs, with old inferior wall [place] Initial troponin 4.2, with follow-up 4.2 Most recent echocardiogram on 09/26/2023 with ejection fraction 60-65% and elevated right ventricular systolic pressure of 30-40 Unclear etiology of discomfort at this time, but within differential includes pericardial disease Ordered tick panel, parvovirus, uric acid, sedimentation rate and Continue aspirin 81 mg every morning, metoprolol tartrate 25 mg twice daily Acetaminophen 650 mg by mouth every 6 hours as needed mild pain or fever Tramadol 50 mg p.o. every 8 hours as needed for moderate pain, as outpatient Oxycodone 5 mg by mouth every 8 hours as needed for severe pain, as outpatient Colitis- Patient reports noting several loose stools over the past 24 hours, without change in food intake, and no recent antibiotic usage Reported history of intermittent bleeding CT scan suggestive of possible colitis as noted Stool PCR and C. difficile studies 1.2 cm right lobe liver lesion- Suggested with hemangioma Follow serial imaging 2 cm right adrenal gland nodule- Follow serially with imaging Diabetes mellitus- Hold empagliflozin and metformin Continue glargine 34 units subcu at bedtime Place Accu-Cheks with NovoLog SSI Check hemoglobin A1c Hyperlipidemia- Continue atorvastatin Check a fasting lipid panel in a.m. Admission and Anticipated Discharge Date Admission Date: September 17, 2024 Subjective Attending: Dr. Cordova Patient reports precordial chest pain as well as some left sided Results & Data Results & Data Vital Signs (Past 12 Hours) Vital Signs Temp Pulse Pulse Resp BP BP Pulse Ox 09/17/24 08:25 36.5 C 62 18 151/92 H 93 09/17/24 04:43 90 18 160/88 H 99 09/17/24 04:40 68 09/17/24 04:25 36.7 C 73 18 149/102 H 95 09/17/24 04:15 09/17/24 04:10 36.7 C 73 16 149/102 H 95 09/17/24 00:51 69 09/17/24 00:00 75 16 167/110 H 97 09/16/24 22:57 74 18 138/85 95 O2 Del Method 09/17/24 08:25 Room Air 09/17/24 04:43 Room Air 09/17/24 04:40 09/17/24 04:25 Room Air 09/17/24 04:15 Room Air 09/17/24 04:10 Room Air 09/17/24 00:51 09/17/24 00:00 Room Air 09/16/24 22:57 Room Air PG Care Time/CCT Total # of Minutes Spent Total Time Spent with Patient: Total time spent is greater than 50% in coordination of care (as documented) at patient's floor/unit and/or counseling patient: Coding Diagnoses Chest pain R07.9 Chest pain type: unspecified CAD (coronary artery disease) I25.10 Colitis K52.9 GI bleed K92.2 Hypertension I10 Obstructive sleep apnea, adult G47.33 Type 2 diabetes mellitus E11.9 (1) Chest pain Chest pain type: unspecified Qualified Code(s): R07.9 - Chest pain, unspecified
[2024-09-17] MEDS: KETOROLAC TROMETHAMINE 15 MG/ML VIAL IV ONE (11:33)
--- NOTE | 2024-09-17 12:26 | XCELERA ---
[id number]
[2024-09-17 16:20] VITALS: BP 151/94; TEMP 97.9; O2SAT 96
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
[2024-09-17 16:45] VITALS: PULSE 64
[2024-09-17] MEDS ORDERED: LANTUS PER UNIT CHARGE SQ SCH (21:00)
[2024-09-17] MEDS ORDERED: lisinopril 10 MG TAB PO SCH (21:00)
[2024-09-17] MEDS ORDERED: ATORVASTATIN 40 MG TAB PO SCH (21:00)
== END 2024-09-17 17:11 | disposition home or self-care (01) ==
LOC: ED 20:24 → 4W 20:24 → SUATTDRO 09-17 03:07 → 4W 09-17 04:43

== ENCOUNTER 2025-07-27 22:34 | Observation (INO) ==
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
[2025-07-27] MEDS: SODIUM CHLORIDE 0.9% 1,000 ML IV ONE (22:56)
[2025-07-27] MEDS: ONDANSETRON INJ 2 MG/ML 2 ML VIAL IV STA (22:56)
[2025-07-27] MEDS: MoRPHine SULFATE 4 MG/ML 1 ML CARP\\VIAL IV STA (22:58)
[2025-07-27 23:22] LABS: Hematocrit (blood only) 47.0 % (42.0-52.0); Hemoglobin 15.8 g/dl (14.0-18.0); Immature Granulocytes # (auto) 0.01 K/uL (0.01-0.20); Immature Granulocytes % (auto) 0.1 %; Mean Corpuscular Hemoglobin 27.4 pg (25.0-34.0); Mean Corpuscular Volume 81.5 fL (80.0-100.0); Platelet Count 262 K/uL (130-400); RDW Standard Deviation 39.1 fL (36.4-46.3); Red Blood Count 5.77 M/uL (4.70-6.10); White Blood Count 6.81 K/ul (4.8-10.8)
[2025-07-27 23:40] LABS: Alanine Aminotransferase 19.0 U/L (7-52); Albumin Globulin Ratio 1.3 (0.9-2); Albumin Level 4.4 gm/dl (3.4-5.0); Alkaline Phosphatase 60.0 U/L (34-104); Anion Gap 10.0 (3-11); Bilirubin,Total 0.6 mg/dl (0.2-1.0); Blood Urea Nitrogen 28.0 mg/dl (6-23); Calcium 10.2 mg/dl (8.6-10.3); Carbon Dioxide 27.0 mmol/L (21-32); Chloride 103.0 mmol/L (98-107); Creatinine Clr Calc Pharmacy 85.3 ml/min; Globulin 3.3 gm/dl (2.5-4.0); Glucose 112.0 mg/dl (70-99(Fasting)); Lipase 43.0 U/L (11-82); Potassium 3.9 mmol/L (3.5-5.1); Sodium 140.0 mmol/L (136-145); Total Protein 7.7 gm/dl (6.0-8.3)
[2025-07-28 00:28] LABS: INR 1.0 (0.9-1.1); Prothrombin Time 10.4 Seconds (9.0-12.0)
[2025-07-28] MEDS: MoRPHine SULFATE 4 MG/ML 1 ML CARP\\VIAL IV STA (00:35)
--- NOTE | 2025-07-28 00:47 | XRay Report ---
Exam(s): XR CXR 1 VIEW EXAM: XR Chest, 1 View CLINICAL HISTORY: Reason for exam: Chest pain, nonspecific. TECHNIQUE: Frontal view of the chest. COMPARISON: No relevant prior studies available. FINDINGS: Lungs: Unremarkable. No consolidation. Pleural space: Unremarkable. No pneumothorax. Heart: Unremarkable. No cardiomegaly. Mediastinum: Unremarkable. Normal mediastinal contour. Bones/joints: Postop changes right shoulder arthroplasty incompletely evaluated on this exam.. No acute fracture. IMPRESSION: Normal chest x-ray. Electronically signed by: Samuel Ivy MD 07/28/25 00:46 AM
[2025-07-28] MEDS: ASPIRIN CHEW 324 MG PO STA (01:23)
[2025-07-28] MEDS ORDERED: HYDROmorphone INJ 0.5 MG/0.5 ML SYR IV PRN (01:35)
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
[2025-07-28 01:59] LABS: Magnesium 2.2 mg/dl (1.7-2.4)
[2025-07-28] MEDS: NSS + 20MEQ KCL 20 MEQ/1,000 ML BAG IV SCH (03:14)
[2025-07-28 04:06] VITALS: RESP 16
[2025-07-28] MEDS ORDERED: GLUCAGON FOR INJ 1 MG VIAL SQ PRN (04:28)
[2025-07-28] MEDS ORDERED: CARBOHYDRATES FOR HYPOGLYCEMIA PO PRN (04:28)
[2025-07-28] MEDS ORDERED: DEXTROSE 50% 50 ML SYRINGE IV PRN (04:28)
[2025-07-28] MEDS ORDERED: NITROGLYCERIN SL 0.4 MG/TAB TAB SL PRN (04:28)
[2025-07-28] MEDS ORDERED: GLUCOSE 10 TAB/TUBE PO PRN (04:28)
[2025-07-28] MEDS ORDERED: METOCLOPRAMIDE HCL 10 MG TABLET PO PRN (04:28)
[2025-07-28] MEDS ORDERED: GLUCOSE 40% GEL 15 GM TUBE PO PRN (04:28)
[2025-07-28] MEDS: NITROGLYCERIN 2% OINTMENT 30GM TUBE EXT SCH (04:46)
[2025-07-28 04:56] VITALS: BP 126/74; TEMP 98.1; O2SAT 97
[2025-07-28 07:17] LABS: Albumin Level 3.9 gm/dl (3.4-5.0); Anion Gap 9.0 (3-11); Blood Urea Nitrogen 28.0 mg/dl (6-23); Calcium 8.7 mg/dl (8.6-10.3); Carbon Dioxide 26.0 mmol/L (21-32); Chloride 106.0 mmol/L (98-107); Creatinine Clr Calc Pharmacy 90.3 ml/min; Glucose 90.0 mg/dl (70-99(Fasting)); Potassium 3.9 mmol/L (3.5-5.1); Sodium 141.0 mmol/L (136-145)
[2025-07-28 07:32] LABS: Hemoglobin A1C 6.3 % (4.5-5.6)
[2025-07-28] MEDS: ASPIRIN 81 MG ECTAB PO SCH (08:28)
[2025-07-28] MEDS: METOPROLOL TARTRATE 25 MG TAB PO SCH (08:28)
[2025-07-28] MEDS: CHOLECALCIFEROL 25 MCG (1000 UNITS) TAB PO SCH (08:28)
[2025-07-28] MEDS: DIVALPROEX DELAY RELEASE 250 MG TABEC PO SCH (08:35)
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
[2025-07-28] MEDS: ACETAMINOPHEN 325 MG TAB PO PRN (09:45)
[2025-07-28] MEDS: INSULIN ASPART PER UNIT CHARGE SC SCH (09:51)
--- NOTE | 2025-07-28 10:51 | Electrocardiogram Report ---
Test Reason : Blood Pressure : */* mmHG Vent. Rate : 88 BPM Atrial Rate : 88 BPM P-R Int : 164 ms QRS Dur : 90 ms QT Int : 348 ms P-R-T Axes : 55 -6 -11 degrees QTcB Int : 421 ms Poor data quality, interpretation may be adversely affected Normal sinus rhythm possible Inferior infarct (cited on or before 15-Jul-2024) Abnormal ECG Confirmed by Mark Singh ([id number] on 07/28/2025 10:50:25 AM Referred By: REFERRED SELF Confirmed By: Mark Singh
--- NOTE | 2025-07-28 10:54 | Electrocardiogram Report ---
Test Reason : Blood Pressure : */* mmHG Vent. Rate : 75 BPM Atrial Rate : 75 BPM P-R Int : 162 ms QRS Dur : 86 ms QT Int : 370 ms P-R-T Axes : 42 -7 -9 degrees QTcB Int : 413 ms Normal sinus rhythm possible Inferior infarct (cited on or before 15-Jul-2024) Abnormal ECG When compared with ECG of 27-Jul-2025 22:42, (unconfirmed) No significant change was found Confirmed by Mark Singh ([id number] on 07/28/2025 10:53:56 AM Referred By: REFERRED SELF Confirmed By: Mark Singh
[2025-07-28] MEDS: ATROPINE SULFATE 0.1 MG/ML 10ML SYR IV ONE (13:38)
[2025-07-28] MEDS: DOBUTamine HCL 12.5 MG/ML 20 ML VIAL IV ONE (13:38)
[2025-07-28] MEDS: METOPROLOL TARTRATE 1 MG/ML VIAL IV ONE (13:39)
--- NOTE | 2025-07-28 13:56 | XCELERA ---
[id number]
[2025-07-28] MEDS: MAGNESIUM SULFATE / D5W 1 GM/100 ML BAG IV ONE (14:25)
--- NOTE | 2025-07-28 15:15 | Discharge Summary ---
Discharge Summary Date of Service July 28, 2025 Principal Dx & Hospital Course #1 = Principal Diagnosis (1) Chest pain: (2) CAD (coronary artery disease): (3) Arteriosclerosis of coronary artery: (4) Chronic migraine without aura: Plan Chest pain worse upon exertion/CAD/hypertension - Pt is a 60 y/o male w/ a PMHx significant for CAD, history of IL, chronic migraine without aura, hypertension, fatty liver, diabetic nephropathy, hyperlipidemia, KYLE, diabetes mellitus type 2, and vitamin D deficiency who presented to the ED with worsening chest pain. While in the ED, pt received 324mg chewable ASA. A CXR revealed no abnormalities. Pt was admitted to the hospital and provided with Nitroprusside lostion for the chest which was discontinued d/t worsening H/A. Serial EKGs were NSR with presence of old inferior IL - no acute ST-T changes. Serial cardiac enzymes remained negative throughout duration of inpt stay. A dobutamine stress echo on 07/28 revealed mild concentric LVH, borderline LAE with no padmaja rns/evidence of inducible ischemia. Pt to continue ASA, Lisinopril, and Metoprolol at home. Diabetes mellitus- no acute concerns; pt should resume home medications as rx. Chronic headaches - Pt admitted to worsening H/A during the inpatient stay; topical Nitroprusside was d/c and the headache improved. Pt additionally received 1gm Mag/Sulf IV to help improve sx of H/A. Pt may resume home meds as rx. Admission HPI Per Admitting Provider The patient is a 60-year-old male with a past medical history including CAD, history of IL, chronic migraine without aura, hypertension, fatty liver, diabetic nephropathy, hyperlipidemia, KYLE, diabetes mellitus type 2, and vitamin D deficiency. He presents to the emergency department with bilateral lower chest area pain that has been going on over the past week, which worsened considerably after using an air blower for 4 hours yesterday. EKG showed normal sinus rhythm at 75, presence of old inferior wall [place], with no acute ST-T changes. Troponin 9.3. Chest x-ray negative. No reproducible chest pain on examination. [facility] Exam General: Pt is a 60 y/o obese male in NAD in bed. VS: reviewed - unremarkable Skin: Warm and dry; no lesions or ulcerations Respiratory: CTA bilat, no adventitious sounds noted. Chest expansion is full and symmetrical Cardio: RRR no murmurs Abdomen: normoactive BS x4, nontender to palpation MSK: FROM of extremities, no deformities Neuro: A&Ox3, cooperative Discharge Plan Discharge Items Patient Disposition: Home - Self-Care Reason For Visit: CHEST PAIN Discharge Diagnosis: Chest Pain Condition on Discharge: Fair Activity: Resume your previous activity Non-emergency contact: Primary Care Provider Call non-emergency contact if: you have any medication questions, your symptoms worsen, your pain is not controlled, your pain is worsening and your pain is concerning for you Follow-up/Referrals: Germán Gillespie MD [Primary Care Provider] - (Please contact your primary care provider to schedule a hospital follow-up appointment within 7-10 days) Diet: Regular Addtl Attending Provider Instructions: You were admitted to the hospital for chest pain. While you were here, you received serial EKGs, serial Troponin, and a Stress ECHO to help rule/out cardiac involvement. No medication changes were made. Please f/u with your PCP to discuss pain management if that is something you are interested in. Medications: Your medication list has been reviewed and reconciled upon discharge to ensure accuracy and continuity of care. An updated list of all your medications is included with your hospital discharge paperwork. Please review this list closely, and make note of any changes. Take your medications as instructed; do not skip a dose of your medicines. Make sure all of your doctors know every medicine you are taking (including gglf-kna-ogsnfxb medicines, vitamins, and supplements). Call your primary care provider before taking any new medicines (including over- the-counter medicines, vitamins, and supplements), because some of these may interact with your current medications, or may make your symptoms worse. Tell your primary care provider if you cannot afford your medications. Activity: You can do normal everyday activities as your body allows. Take rest breaks if you feel tired. Do not overexert. Stop activity if you have pain, shortness of breath or feel dizzy. Follow-up appointments: Make an appointment with your primary care physician within one week of discharge. A copy of this summary will be sent to them. Every time you see your primary care physician, or any other doctor, bring your medication list, and a list of questions. CONTACT YOUR PRIMARY CARE PROVIDER if you experience any of the following: Shortness of breath or difficulty breathing Fevers or chills Feeling tired with normal activity or experiencing dizziness or fainting Difficulty following your treatment plan, or difficulty taking medications CALL 911 OR GO TO THE EMERGENCY DEPARTMENT if you experience any of the following: Severe abdominal pain or nausea/vomiting Severe chest pain, or chest pain that radiates (moves) to your jaw or arm Sudden, severe shortness of breath or difficulty breathing Thank you for allowing us to participate in your care. Pending Studies at Discharge: No Stand-Alone Forms: [facility] Sm[facility] Cess[facility] Medications and DC Order Prescriptions: Continued Qulipta 60 mg tablet 60 mg PO DAILY 30 Days Qty: 30 6RF Botox 200 unit recon soln See Rx Instructions IM .COMPLEX Qty: 1 3RF Rx Instructions: 155 UNITS IM IN THE FACE AND NECK MUSCLES EVERY 12 WEEKS PER MIGRAINE PROTOCOL. auth# [id number] 01/30/25-01/29/26 Reyvow 50 mg tablet 50 mg PO DIRECTED PRN (Reason: Migraine) 30 Days Qty: 10 2RF Rx Instructions: Limit 1 dose in 24 hours. empagliflozin 25 mg tablet 25 mg PO QAM (DME) digital therapeutic,[place] device Misc See Rx Instructions miscellaneous .MEDSUPPLY Qty: 1 0RF Rx Instructions: As directed metoprolol tartrate 50 mg tablet 25 mg PO BID magnesium glycinate 100 mg magnesium capsule 400 mg PO QAM metoclopramide HCl 10 mg tablet 20 mg PO DAILY PRN (Reason: nausea and vomiting) 30 Days Qty: 30 1RF divalproex 250 mg tablet,delayed release (DR/EC) 250 mg PO BID Qty: 60 2RF Nurtec ODT 75 mg tablet,disintegrating 75 mg PO DAILY PRN (Reason: migraine headache) 30 Days Qty: 16 5RF atorvastatin 80 mg tablet 80 mg PO HS aspirin 81 mg Tablet,Delayed Release (Dr/Ec) 81 mg PO QAM Rx Instructions: PER PT "TOOK ADDITIONAL 81 MG, TONIGHT PRIOR TO ER". metformin 1,000 mg tablet 1,000 mg PO BID insulin glargine [Lantus Solostar U-100 Insulin] 100 unit/mL (3 mL) insulin pen 30 unit SUBCUT HS lisinopril 10 mg tablet 10 mg PO PM Qty: 30 0RF cholecalciferol (vitamin D3) [Vitamin D3] 50 mcg (2,000 unit) Capsule 100 mcg PO DAILY Discharge Orders: Discharge Order (Routine); Ordered 07/28/25 Ordered By: Soledad Thornton/Other Patient Handouts: Managing Type 2 Diabetes Admission Data Admit Date/Time: 07/28/25 01:39 Attending Provider: George Fenton Admit Provider: Jimbo Cannon Primary Care Provider: Germán Gillespie Other Providers: Jimbo Cannon; [facility],Hospital Hospital Stay Data Consultations 07/28/25 00:43 ED Decision to Admit Stat Diagnostic Imagining Performed Chest X-Ray 07/27/25 22:41 Exam(s): XR CXR 1 VIEW EXAM: XR Chest, 1 View CLINICAL HISTORY: Reason for exam: Chest pain, nonspecific. TECHNIQUE: Frontal view of the chest. COMPARISON: No relevant prior studies available. FINDINGS: Lungs: Unremarkable. No consolidation. Pleural space: Unremarkable. No pneumothorax. Heart: Unremarkable. No cardiomegaly. Mediastinum: Unremarkable. Normal mediastinal contour. Bones/joints: Postop changes right shoulder arthroplasty incompletely evaluated on this exam.. No acute fracture. IMPRESSION: Normal chest x-ray. Electronically signed by: Samuel Ivy MD 07/28/25 00:46 AM Pending Results Patient Have Any Pending Studies at Discharge: No Discharge Instructions Given to Patient (Per Discharging Provider) You were admitted to the hospital for chest pain. While you were here, you received serial EKGs, serial Troponin, and a Stress ECHO to help rule/out cardiac involvement. No medication changes were made. Please f/u with your PCP to discuss pain management if that is something you are interested in. Medications: Your medication list has been reviewed and reconciled upon discharge to ensure accuracy and continuity of care. An updated list of all your medications is included with your hospital discharge paperwork. Please review this list closely, and make note of any changes. Take your medications as instructed; do not skip a dose of your medicines. Make sure all of your doctors know every medicine you are taking (including asfe-siz-imnbzfd medicines, vitamins, and supplements). Call your primary care provider before taking any new medicines (including over- the-counter medicines, vitamins, and supplements), because some of these may interact with your current medications, or may make your symptoms worse. Tell your primary care provider if you cannot afford your medications. Activity: You can do normal everyday activities as your body allows. Take rest breaks if y ou feel tired. Do not overexert. Stop activity if you have pain, shortness of breath or feel dizzy. Follow-up appointments: Make an appointment with your primary care physician within one week of dis charge. A copy of this summary will be sent to them. Every time you see your primary care physician, or any other doctor, bring your medication list, and a list of questions. CONTACT YOUR PRIMARY CARE PROVIDER if you experience any of the following: Shortness of breath or difficulty breathing Fevers or chills Feeling tired with normal activity or experiencing dizziness or fainting Difficulty following your treatment plan, or difficulty taking medications CALL 911 OR GO TO THE EMERGENCY DEPARTMENT if you experience any of the following: Severe abdominal pain or nausea/vomiting Severe chest pain, or chest pain that radiates (moves) to your jaw or arm Sudden, severe shortness of breath or difficulty breathing Thank you for allowing us to participate in your care. Supervising Physician Co-Signing Physician Notes The patient was not seen by me. The chart was reviewed. Case discussed with GURU Reddy. Agree with assessment and plan Total Time Total Time Spent Total Time Spent (In Minutes): Time spent day of discharge 35 minutes including direct patient care, medication reconciliation, documentation, review of labs and images, and coordination of care. Coding Level of Care Code 40421 INP/OBS DISCH >30 MIN Diagnoses Chest pain, unspecified type R07.9 Chest pain type: unspecified Coronary artery disease involving [place] coronary artery of [place] heart with angina pectoris I25.119 Associated angina: with unspecified form of angina Coronary Disease-Associated Artery/Lesion type: [place] artery [place] vs. transplanted heart: [place] heart Arteriosclerosis of coronary artery I25.10 Chronic migraine without aura G43.709
[2025-07-28 17:07] VITALS: PULSE 77
--- NOTE | 2025-07-28 20:58 | Electrocardiogram Report ---
Test Reason : Blood Pressure : */* mmHG Vent. Rate : 75 BPM Atrial Rate : 75 BPM P-R Int : 162 ms QRS Dur : 88 ms QT Int : 384 ms P-R-T Axes : 14 -11 -24 degrees QTcB Int : 428 ms Normal sinus rhythm Inferior infarct (cited on or before 15-Jul-2024) Abnormal ECG When compared with ECG of 28-Jul-2025 00:30, No significant change was found Confirmed by Mark Singh ([id number]) on 07/28/2025 8:57:58 PM Referred By: REFERRED SELF Confirmed By: Mark Singh
[2025-07-28] MEDS ORDERED: ATORVASTATIN 40 MG TAB PO SCH (21:00)
[2025-07-28] MEDS ORDERED: LANTUS PER UNIT CHARGE SQ SCH (21:00)
== END 2025-07-28 17:36 | disposition home or self-care (01) ==
LOC: ED 22:34 → 2N 22:34 → SUATTDRO 07-28 01:39 → 2N 07-28 04:05